=== PATIENT | female | born 1960 | race Hispanic/Latino ===

== ENCOUNTER → 2017-06-03 | Outpatient (CLI) | payer OTHER, MEDICARE ==
[~2017-06-03] MED LIST: ALBU90AE IH; ASPI-1197 PO; BACL10TA PO; CANA1TAB PO; DOCU100T9 PO; FLUO-126 PO; HYDR-4060 PO; INSLAN SQ; INSU100V SQ; INSU200I SQ; LISI-613 PO; MAGN250T2 PO; METOPROLOL PO; NAPR-1023 PO; OXYB10TA PO; PANT40TA25 PO; PREG200C PO; ROSU20TA38 PO; SYMB8060 IH
== END | disposition home or self-care (01) ==
LOC: OIH 12:59
PROVIDERS: ATTEND Family Medicine
DX: J18.0 Bronchopneumonia, unspecified organism (principal)
CPT/HCPCS: 71020

== ENCOUNTER → 2017-08-16 | Outpatient (CLI) | payer OTHER, MEDICARE | END | disposition home or self-care (01) | LOC: OIH 16:48 | PROVIDERS: ATTEND Family Medicine | DX: R07.81 Pleurodynia (principal); E11.9 Type 2 diabetes mellitus without complications | CPT/HCPCS: 71100 ==

== ENCOUNTER → 2017-09-05 | Outpatient (CLI) | payer OTHER, MEDICARE ==
[~2017-09-05] MED LIST changes: +REGADENOSON 0.4 MG/5 ML PF SYG IVP SCH
== END ==
LOC: RAH 08:44
PROVIDERS: ATTEND Family Medicine
DX: Z01.818 Encounter for other preprocedural examination (principal); R94.31 Abnormal electrocardiogram [ECG] [EKG]; E11.9 Type 2 diabetes mellitus without complications
CPT/HCPCS: 78452; 93017; 96374; A9500 ×2; J2785

== ENCOUNTER 2017-10-25 07:44 | Day surgery (SDC) | payer OTHER, MEDICARE ==
[2017-10-21 14:00] VITALS: BP 144/61
[2017-10-21 14:07] LABS: BASOPHILS % (AUTO) 0.6 % (0.0-5.0); EOSINOPHILS % (AUTO) 0.7 % (0.0-8.0); HEMATOCRIT 40.3 % (36-48); LYMPHOCYTES % (AUTO) 19.4 % (21.0-51.0); MEAN CORPUSCULAR HEMOGLOBIN 30.9 pg (27.0-33.0); MEAN CORPUSCULAR HGB CONC 34.2 g/dL (32.0-36.0); MEAN CORPUSCULAR VOLUME 90.4 fL (79-99); MONOCYTES % (AUTO) 5.9 % (3.0-13.0); NEUTROPHILS % (AUTO) 73.4 % (40.0-77.0); NUCLEATED RED BLOOD CELLS 0.1 % (0.0-0.19); PLATELET COUNT (AUTO) 250 K/uL (130-400); RED BLOOD CELL COUNT(AUTO) 4.46 MIL/uL (4.00-5.50); RED CELL DISTRIBUTION WIDTH 13.3 % (11.0-15.5); WHITE BLOOD COUNT (AUTO) 10.5 K/uL (4.8-10.8)
[2017-10-21 14:09] LABS: APPEARANCE,URINE Clear (CLEAR); BILIRUBIN,URINE Negative (NEGATIVE); COLOR,URINE Yellow (YELLOW); GLUCOSE, URINE (UA) >=1000 mg/dL (NEGATIVE); KETONES,URINE Negative (NEGATIVE); LEUKOCYTE ESTERASE ,URINE Negative (NEGATIVE); NITRATE,URINE Negative (NEGATIVE); OCCULT BLOOD,URINE Negative (NEGATIVE); PH,URINE 5.5 (5.0-8.0); PROTEIN,URINE Negative (NEGATIVE)
[2017-10-21 14:17] LABS: CREATININE 0.7 mg/dL (0.5-1.5); POTASSIUM 4.1 mmol/L (3.5-5.1)
[2017-10-21 14:22] LABS: INR 0.93 (0.85-1.15); PARTIAL THROMBOPLASTIN TIME 24.2 SEC (26.3-35.5); PROTHROMBIN TIME 9.8 SEC (9.6-11.6)
[2017-10-21 14:24] LABS: BACTERIA,URINE Rare /HPF (None Seen); RBC,URINE None Seen /HPF (0-1); WBC,URINE None Seen /HPF (0-1)
[2017-10-25] VITALS (10 sets, daily range): BP systolic 99–121; BP diastolic 47–61
[~2017-10-25] VITALS: Ht 154.9 cm; Wt 119.9 kg
[~2017-10-25 07:44] MED LIST changes: -BACL10TA PO; -CANA1TAB PO; -FLUO-126 PO; -INSU100V SQ; -OXYB10TA PO; -REGADENOSON 0.4 MG/5 ML PF SYG IVP SCH; +ROSU20TA30 PO; -ROSU20TA38 PO; -SYMB8060 IH
[2017-10-25] MEDS ORDERED: SODIUM CHLORIDE 0.9% 1000ML 1,000 ML IV ONE (08:36)
[2017-10-25] MEDS ORDERED: DiphenhydrAMINE HCL 50 MG/ML VIAL ONE (09:43)
[2017-10-25] MEDS ORDERED: DiphenhydrAMINE HCL 50 MG/ML VIAL IV ONE (10:50)
[2017-10-25] MEDS ORDERED: SODIUM BICARB 50MEQ 50ML VIAL ONE (11:21)
[2017-10-25] MEDS ORDERED: LIDOCAINE HCL 2% 20ML ONE (11:22)
[2017-10-25] MEDS ORDERED: NITROGLYCERIN 5 MG/ML 10 ML VIAL IV ONE (11:22)
[2017-10-25] MEDS ORDERED: ISOVUE-370 50ML VIAL IV ONE (11:22)
[2017-10-25] MEDS ORDERED: IOPAMIDOL-370 100 ML VIAL IV ONE (11:22)
[2017-10-25] MEDS ORDERED: HEPARIN SODIUM 1000UNIT/ML 10ML VIAL ONE (11:22)
[2017-10-25] MEDS ORDERED: MIDAZOLAM HCL 1 MG/ML 2ML VIAL ONE (12:00)
[2017-10-25] MEDS ORDERED: MEPERIDINE-PF 25 MG/ML SYG ONE (12:00)
[2017-10-25] MEDS ORDERED: SODIUM CHLORIDE 0.9% 1000ML 1,000 ML IV SCH (12:27)
[2017-10-25] MEDS ORDERED: ACETAMINOPHEN-CODEINE 300/30MG TAB PO PRN (12:30)
[2017-10-25] MEDS ORDERED: DEXTROSE 50%-WATER 50 ML DISP.SYRIN IV PRN (12:30)
[2017-10-25] MEDS ORDERED: GLUCAGON 1MG KIT 1 MG ML IM PRN (12:30)
[2017-10-25] MEDS ORDERED: INSULIN HUMULIN R 100 UNIT/ML 3ML SQ SCH (16:30)
== END 2017-10-25 17:08 | disposition home or self-care (01) ==
LOC: DAH 07:44
PROVIDERS: ATTEND Internal Medicine Cardiovascular Disease
DX: I25.119 Atherosclerotic heart disease of native coronary artery with unspecified angina pectoris (principal); I10 Essential (primary) hypertension; E78.5 Hyperlipidemia, unspecified; F17.200 Nicotine dependence, unspecified, uncomplicated; Z79.4 Long term (current) use of insulin; Z79.84 Long term (current) use of oral hypoglycemic drugs; Z79.899 Other long term (current) drug therapy; E11.51 Type 2 diabetes mellitus with diabetic peripheral angiopathy without gangrene; E66.9 Obesity, unspecified; G47.33 Obstructive sleep apnea (adult) (pediatric); M54.16 Radiculopathy, lumbar region; Z98.51 Tubal ligation status; I99.8 Other disorder of circulatory system; I26.99 Other pulmonary embolism without acute cor pulmonale; Z98.890 Other specified postprocedural states; Z82.49 Family history of ischemic heart disease and other diseases of the circulatory system
CPT/HCPCS: 36415; 71045; 80048; 81001; 82948 ×2; 85025; 85610; 85730; 93005; 93458; 99152 ×2; 99153; A4606; C1760; C1894; J1200; J1644; J2175; J2250; J3490 ×3; J7030; Q9967 ×2; 99156; 99157

== ENCOUNTER → 2017-11-07 | Outpatient (CLI) | payer OTHER, MEDICARE | END | disposition home or self-care (01) | LOC: SHCH 15:05 | PROVIDERS: ATTEND Internal Medicine Cardiovascular Disease | DX: I73.9 Peripheral vascular disease, unspecified (principal) | CPT/HCPCS: 93925 ==

== ENCOUNTER → 2017-11-21 | Outpatient (CLI) | payer OTHER, MEDICARE ==
[~2017-11-21] MED LIST changes: +IOPAMIDOL-370 75 ML VIAL IV ONE; +ISOVUE-370 50ML VIAL IV ONE
== END | disposition home or self-care (01) ==
LOC: RAH 07:42
PROVIDERS: ATTEND Internal Medicine Cardiovascular Disease
DX: I70.0 Atherosclerosis of aorta (principal); I73.9 Peripheral vascular disease, unspecified
CPT/HCPCS: 75635; Q9967 ×2

== ENCOUNTER 2018-01-03 05:59 | Day surgery (SDC) | payer OTHER, MEDICARE ==
[2017-12-30 10:44] LABS: APPEARANCE,URINE Clear (CLEAR); BILIRUBIN,URINE Negative (NEGATIVE); COLOR,URINE Yellow (YELLOW); GLUCOSE, URINE (UA) Negative (NEGATIVE); KETONES,URINE Negative (NEGATIVE); LEUKOCYTE ESTERASE ,URINE Negative (NEGATIVE); NITRATE,URINE Negative (NEGATIVE); OCCULT BLOOD,URINE Negative (NEGATIVE); PROTEIN,URINE Negative (NEGATIVE); UROBILINOGEN,URINE 0.2 mg/dL (0.2-1.0)
[2017-12-30 10:59] LABS: BASOPHILS % (AUTO) 1.2 % (0.0-5.0); EOSINOPHILS % (AUTO) 0.7 % (0.0-8.0); HEMATOCRIT 42.4 % (36-48); LYMPHOCYTES % (AUTO) 22.3 % (21.0-51.0); MEAN CORPUSCULAR HEMOGLOBIN 30.7 pg (27.0-33.0); MEAN CORPUSCULAR HGB CONC 33.3 g/dL (32.0-36.0); MEAN CORPUSCULAR VOLUME 92.2 fL (79-99); MONOCYTES % (AUTO) 6.6 % (3.0-13.0); NEUTROPHILS % (AUTO) 69.2 % (40.0-77.0); PLATELET COUNT (AUTO) 248 K/uL (130-400); RED CELL DISTRIBUTION WIDTH 14.2 % (11.0-15.5); WHITE BLOOD COUNT (AUTO) 9.1 K/uL (4.8-10.8)
[2017-12-30 11:07] VITALS: BP 134/65
[2017-12-30 11:09] LABS: CREATININE 0.6 mg/dL (0.5-1.5); POTASSIUM 3.8 mmol/L (3.5-5.1)
[2017-12-30 11:13] LABS: INR 0.94 (0.85-1.15); PARTIAL THROMBOPLASTIN TIME 24.9 SEC (26.3-35.5); PROTHROMBIN TIME 9.9 SEC (9.6-11.6)
[~2018-01-03] VITALS: Ht 157.5 cm; Wt 118.8 kg
[2018-01-03] VITALS (12 sets, daily range): BP systolic 83–132; BP diastolic 42–62
[~2018-01-03 05:59] MED LIST changes: +AMOX500T2 PO; +BUDE10.2 IH; -DOCU100T9 PO; +HYDR-3830 PO; -HYDR-4060 PO; -IOPAMIDOL-370 75 ML VIAL IV ONE; -ISOVUE-370 50ML VIAL IV ONE; +LEG CRAMPS PO; +LORA10TA7 PO; +METO-391 PO; -METOPROLOL PO; -PREG200C PO; +TYL3 PO
[2018-01-03] MEDS ORDERED: SODIUM CHLORIDE 0.9% 1000ML 1,000 ML IV SCH ×2 (08:00→10:37)
[2018-01-03] MEDS ORDERED: NITROGLYCERIN 5 MG/ML 10 ML VIAL IV ONE (09:40)
[2018-01-03] MEDS ORDERED: IODIXANOL 320 MG/ML 100 ML VIAL ONE (09:40)
[2018-01-03] MEDS ORDERED: LIDOCAINE HCL-MPF 2% 5ML VIAL ONE (09:40)
[2018-01-03] MEDS ORDERED: HEPARIN SODIUM 1000UNIT/ML 10ML VIAL ONE (09:40)
[2018-01-03] MEDS ORDERED: SODIUM BICARB 50MEQ 50ML VIAL ONE (09:48)
[2018-01-03] MEDS ORDERED: MIDAZOLAM HCL 1 MG/ML 2ML VIAL ONE (10:01)
[2018-01-03] MEDS ORDERED: MEPERIDINE-PF 25 MG/ML SYG ONE (10:01)
[2018-01-03] MEDS ORDERED: DEXTROSE 50%-WATER 50 ML DISP.SYRIN IV PRN (10:45)
[2018-01-03] MEDS ORDERED: GLUCAGON 1MG KIT 1 MG ML IM PRN (10:45)
[2018-01-03] MEDS ORDERED: INSULIN HUMULIN R 100 UNIT/ML 3ML SQ SCH (11:30)
[2018-01-03] MEDS ORDERED: ACETAMINOPHEN-CODEINE 300/30MG TAB ONE (11:32)
== END 2018-01-03 19:18 | disposition home or self-care (01) ==
LOC: DAH 05:59
PROVIDERS: ATTEND Internal Medicine Cardiovascular Disease
DX: I70.0 Atherosclerosis of aorta (principal); G47.33 Obstructive sleep apnea (adult) (pediatric); Z79.899 Other long term (current) drug therapy; Z79.4 Long term (current) use of insulin; Z79.84 Long term (current) use of oral hypoglycemic drugs; I10 Essential (primary) hypertension; E78.5 Hyperlipidemia, unspecified; M54.16 Radiculopathy, lumbar region; Z98.890 Other specified postprocedural states; Z98.51 Tubal ligation status; Z82.49 Family history of ischemic heart disease and other diseases of the circulatory system; E11.51 Type 2 diabetes mellitus with diabetic peripheral angiopathy without gangrene; I70.213 Atherosclerosis of native arteries of extremities with intermittent claudication, bilateral legs; I21.3 ST elevation (STEMI) myocardial infarction of unspecified site
CPT/HCPCS: 36200; 36415; 37236; 71045; 75625; 80048; 81003; 82948 ×3; 85025; 85347; 85610; 85730; 93005; A4606; C1725; C1760; C1769 ×2; C1876; C1894 ×2; J1644; J2175; J2250; J3490 ×3; J7030; Q9967; 99156; 99157

== ENCOUNTER 2018-02-22 15:07 | Inpatient (IN) | payer OTHER, MEDICARE ==
[~2018-02-22] VITALS: Ht 160 cm; Wt 123.6 kg
[~2018-02-22 15:07] MED LIST changes: -MAGN250T2 PO
[2018-02-22 15:22] LABS: BASOPHILS % (AUTO) 0.9 % (0.0-5.0); EOSINOPHILS % (AUTO) 0.9 % (0.0-8.0); HEMATOCRIT 45.1 % (36-48); LYMPHOCYTES % (AUTO) 25.4 % (21.0-51.0); MEAN CORPUSCULAR HEMOGLOBIN 30.9 pg (27.0-33.0); MEAN CORPUSCULAR VOLUME 90.7 fL (79-99); MONOCYTES % (AUTO) 5.9 % (3.0-13.0); NEUTROPHILS % (AUTO) 66.9 % (40.0-77.0); PLATELET COUNT (AUTO) 242 K/uL (130-400); RED BLOOD CELL COUNT(AUTO) 4.97 MIL/uL (4.00-5.50); RED CELL DISTRIBUTION WIDTH 13.8 % (11.0-15.5); WHITE BLOOD COUNT (AUTO) 13.2 K/uL (4.8-10.8)
[2018-02-22] MEDS ORDERED: IOHEXOL 350 MG/ML 100ML INFUS..BTL IV ONE (15:30)
[2018-02-22 16:15] LABS: CREATININE 0.7 mg/dL (0.5-1.5); POTASSIUM 3.9 mmol/L (3.5-5.1)
[2018-02-22 16:19] LABS: BILIRUBIN,TOTAL 0.6 mg/dL (0.2-1.0); TOTAL PROTEIN, SERUM 7.1 g/dL (6.0-8.3)
[2018-02-22 16:42] LABS: APPEARANCE,URINE Clear (CLEAR); BILIRUBIN,URINE Negative (NEGATIVE); COLOR,URINE Yellow (YELLOW); GLUCOSE, URINE (UA) Negative (NEGATIVE); KETONES,URINE Negative (NEGATIVE); LEUKOCYTE ESTERASE ,URINE Negative (NEGATIVE); NITRATE,URINE Negative (NEGATIVE); OCCULT BLOOD,URINE Negative (NEGATIVE); PROTEIN,URINE Negative (NEGATIVE); UROBILINOGEN,URINE 0.2 mg/dL (0.2-1.0)
[2018-02-22] MEDS ORDERED: ACETAMINOPHEN 325 MG TAB ONE (17:08)
[2018-02-22] MEDS ORDERED: LIDOCAINE HCL-MPF 1% 2ML VIAL IJ PRN (18:30)
[2018-02-22] MEDS ORDERED: POTASSIUM CHLORIDE 20 MEQ ERTAB PO PRN (18:30)
[2018-02-22] MEDS ORDERED: DEXTROSE 50%-WATER 50 ML DISP.SYRIN IV PRN (18:30)
[2018-02-22] MEDS ORDERED: POTASSIUM CHLORIDE 20MEQ/100ML 100 ML IV PRN (18:30)
[2018-02-22] MEDS ORDERED: POTASSIUM CHLORIDE 10% ELIXIR 20 MEQ/15 ML UDCUP PO PRN (18:30)
[2018-02-22] MEDS ORDERED: SODIUM CHLORIDE 0.9% 10 ML VIAL IVP PRN (18:30)
[2018-02-22] MEDS ORDERED: GLUCAGON 1MG KIT 1 MG ML IM PRN (18:30)
[2018-02-22] MEDS ORDERED: NITROGLYCERIN 1GM/1 INCH PACKET TD SCH (19:00)
[2018-02-22 21:31] VITALS: BP 137/77
[2018-02-22 22:12] LABS: CREATINE KINASE, TOTAL 30 U/L (21-232); MYOGLOBIN 21 ng/mL (10-92); TROPONIN I < 0.04 ng/mL (0.00-0.06)
[2018-02-22] MEDS: METOPROLOL TARTRATE 50 MG TAB PO SCH (22:15)
[2018-02-22] MEDS: INSULIN R PO SS1 SQ SCH (22:25)
[2018-02-22 23:49] VITALS: BP 115/70
[2018-02-23 03:43] VITALS: BP 107/59
[2018-02-23] MEDS ORDERED: FURO20TA6 PO (03:52)
[2018-02-23 04:31] LABS: CREATINE KINASE, TOTAL 27 U/L (21-232); MYOGLOBIN 21 ng/mL (10-92); TROPONIN I < 0.04 ng/mL (0.00-0.06)
[2018-02-23] MEDS ORDERED: NITROGLYCERIN 1GM/1 INCH PACKET TD SCH ×2 (05:00→09:44)
[2018-02-23] MEDS: INSULIN R PO SS1 SQ SCH ×4 (05:48→21:00)
[2018-02-23 07:00] VITALS: BP_SYST 100; BP_SYST 187; BP_DIAS 58; BP_DIAS 72
[2018-02-23] MEDS ORDERED: ACETAMINOPHEN 325 MG TAB ONE (09:44)
[2018-02-23] MEDS ORDERED: ACETAMINOPHEN 325 MG TAB PO PRN (09:45)
[2018-02-23] MEDS: METOPROLOL TARTRATE 50 MG TAB PO SCH ×2 (09:53→21:12)
[2018-02-23] MEDS: ACETAMINOPHEN 325 MG TAB PO PRN ×2 (09:53→21:18)
[2018-02-23] MEDS ORDERED: REGADENOSON 0.4 MG/5 ML PF SYG IVP SCH (10:30)
[2018-02-23 11:00] VITALS: BP 126/66
[2018-02-23 18:01] VITALS: BP 113/76
[2018-02-23 19:41] VITALS: BP 110/54
[2018-02-24 00:28] VITALS: BP 106/59
[2018-02-24 03:54] VITALS: BP 120/70
[2018-02-24 07:00] VITALS: BP 122/82
[2018-02-24] MEDS: INSULIN R PO SS1 SQ SCH ×2 (07:30→12:03)
[2018-02-24] MEDS ORDERED: IOHEXOL-350 50ML VIAL IV ONE (09:29)
[2018-02-24] MEDS ORDERED: BIVALIRUDIN 250 MG/VIAL IV ONE (09:29)
[2018-02-24] MEDS ORDERED: IOHEXOL 350 MG/ML 100ML INFUS..BTL IV ONE (09:29)
[2018-02-24] MEDS ORDERED: LIDOCAINE HCL-MPF 2% 5ML VIAL ONE (09:29)
[2018-02-24] MEDS ORDERED: NITROGLYCERIN 5 MG/ML 10 ML VIAL IV ONE (09:29)
[2018-02-24] MEDS ORDERED: METOPROLOL TARTRATE 50 MG TAB PO SCH (09:30)
[2018-02-24] MEDS ORDERED: LISINOPRIL 10 MG TABLET PO SCH (09:30)
[2018-02-24] MEDS ORDERED: APIXABAN 5 MG TABLET PO SCH (09:30)
[2018-02-24 11:00] VITALS: BP 127/51
== END 2018-02-24 15:35 | disposition home or self-care (01) | DRG 309 ==
LOC: EDH 15:07 → EDHIP 17:45 → 2BH 20:42
PROVIDERS: ADMIT Family Medicine; ATTEND Family Medicine
PROC: 5A09357 Assistance with Respiratory Ventilation, Less than 24 Consecutive Hours, Continuous Positive Airway Pressure (ICD-10-PCS; principal; 2018-02-24)
DX: I48.0 Paroxysmal atrial fibrillation (principal); Z68.42 Body mass index [BMI] 45.0-49.9, adult; I25.10 Atherosclerotic heart disease of native coronary artery without angina pectoris; E66.01 Morbid (severe) obesity due to excess calories; E78.5 Hyperlipidemia, unspecified; G47.33 Obstructive sleep apnea (adult) (pediatric); E11.9 Type 2 diabetes mellitus without complications; I10 Essential (primary) hypertension; Z86.711 Personal history of pulmonary embolism; Z86.718 Personal history of other venous thrombosis and embolism
CPT/HCPCS: 36415; 71045; 71046; 71275; 78452; 80053; 81003; 82550; 82948; 83874; 83880; 84443; 84484; 85025; 93005; 93017; 93306; 96374; 99291; A9500; J0583; J1644; J1815; J2785; J3490; Q2038; Q9967

== ENCOUNTER 2018-06-11 22:19 | Emergency (ER) | payer OTHER, MEDICARE ==
[~2018-06-11 22:19] MED LIST changes: -AMOX500T2 PO; -BUDE10.2 IH; +FURO20TA6 PO; -INSU200I SQ; -LEG CRAMPS PO; -LORA10TA7 PO; -NAPR-1023 PO; -TYL3 PO
[2018-06-11] MEDS ORDERED: SODIUM CHLORIDE 0.9% 1000ML 1,000 ML IV ONE (23:35)
[2018-06-11 23:50] LABS: CREATININE 0.6 mg/dL (0.5-1.5); POTASSIUM 3.5 mmol/L (3.5-5.1)
[2018-06-12] LABS: EOSINOPHILS % (AUTO) 1.9 % (0.0-8.0); HEMATOCRIT 37.8 % (36-48); LYMPHOCYTES % (AUTO) 20.2 % (21.0-51.0); MEAN CORPUSCULAR HGB CONC 32.9 g/dL (32.0-36.0); MEAN CORPUSCULAR VOLUME 88.1 fL (79-99); MONOCYTES % (AUTO) 7.7 % (3.0-13.0); NEUTROPHILS % (AUTO) 69.2 % (40.0-77.0); NUCLEATED RED BLOOD CELLS 0.1 % (0.0-0.19); PLATELET COUNT (AUTO) 204 K/uL (130-400); RED BLOOD CELL COUNT(AUTO) 4.29 MIL/uL (4.00-5.50); RED CELL DISTRIBUTION WIDTH 14.2 % (11.0-15.5); WHITE BLOOD COUNT (AUTO) 8.5 K/uL (4.8-10.8)
[2018-06-12] MEDS ORDERED: KETOROLAC TROMETHAMINE 30MG/ML ONE (01:03)
[2018-06-12] MEDS ORDERED: CYCLOBENZAPRINE HCL 10 MG TABLET ONE (01:03)
== END 2018-06-12 01:47 | disposition home or self-care (01) ==
LOC: EDH 22:19
DX: M62.831 Muscle spasm of calf (principal); R11.0 Nausea; I10 Essential (primary) hypertension; E11.9 Type 2 diabetes mellitus without complications; Z79.899 Other long term (current) drug therapy; Z98.890 Other specified postprocedural states; Z72.0 Tobacco use
CPT/HCPCS: 36415; 80048; 85025; 93971; 96374; 99284; J1885; J7030

== ENCOUNTER → 2018-07-07 | Outpatient (CLI) | payer OTHER, MEDICARE | END | disposition home or self-care (01) | LOC: OIH 11:21 | PROVIDERS: ATTEND Neuromusculoskeletal Medicine & OMM | DX: M16.0 Bilateral primary osteoarthritis of hip (principal); M47.816 Spondylosis without myelopathy or radiculopathy, lumbar region; M53.3 Sacrococcygeal disorders, not elsewhere classified | CPT/HCPCS: 72100; 73521 ==

== ENCOUNTER → 2018-11-13 | Outpatient (CLI) | payer OTHER, MEDICARE | END | disposition home or self-care (01) | LOC: SHCH 10:00 | PROVIDERS: ATTEND Internal Medicine Cardiovascular Disease | DX: I80.203 Phlebitis and thrombophlebitis of unspecified deep vessels of lower extremities, bilateral (principal) | CPT/HCPCS: 93970 ==

== ENCOUNTER → 2018-12-01 | Outpatient (CLI) | payer OTHER, MEDICARE | END | disposition home or self-care (01) | LOC: OIH 11-30 07:53 | PROVIDERS: ATTEND Neuromusculoskeletal Medicine & OMM | DX: M47.816 Spondylosis without myelopathy or radiculopathy, lumbar region (principal); M47.812 Spondylosis without myelopathy or radiculopathy, cervical region; M41.86 Other forms of scoliosis, lumbar region; M85.88 Other specified disorders of bone density and structure, other site; M43.27 Fusion of spine, lumbosacral region; M48.02 Spinal stenosis, cervical region; M25.78 Osteophyte, vertebrae; Z95.818 Presence of other cardiac implants and grafts | CPT/HCPCS: 72040; 72100 ==

== ENCOUNTER → 2019-06-28 | Outpatient (CLI) | payer MEDICARE ==
[~2019-06-28] MED LIST changes: -ROSU20TA30 PO; +ROSU20TA31 PO
== END | disposition home or self-care (01) ==
LOC: SHCH 10:35
PROVIDERS: ATTEND Internal Medicine Cardiovascular Disease
DX: I73.9 Peripheral vascular disease, unspecified (principal); I26.99 Other pulmonary embolism without acute cor pulmonale
CPT/HCPCS: 93970

== ENCOUNTER → 2019-07-24 | Outpatient (CLI) | payer MEDICARE ==
[~2019-07-24] MED LIST changes: +IOHEXOL 350 MG/ML 100ML INFUS..BTL IV ONE; +IOHEXOL-350 50ML VIAL IV ONE
== END | disposition home or self-care (01) ==
LOC: RAH 07:37
PROVIDERS: ATTEND Internal Medicine Cardiovascular Disease
DX: M17.0 Bilateral primary osteoarthritis of knee (principal); I70.0 Atherosclerosis of aorta; I51.7 Cardiomegaly; J98.11 Atelectasis; M47.816 Spondylosis without myelopathy or radiculopathy, lumbar region; Z90.49 Acquired absence of other specified parts of digestive tract; Z98.890 Other specified postprocedural states
CPT/HCPCS: 73560; 75635; Q9967 ×2

== ENCOUNTER 2019-08-14 17:59 | Inpatient (IN) | payer MEDICARE ==
[~2019-08-14] VITALS: Ht 154.9 cm; Wt 113.4 kg
[~2019-08-14 17:59] MED LIST changes: -IOHEXOL 350 MG/ML 100ML INFUS..BTL IV ONE; -IOHEXOL-350 50ML VIAL IV ONE
[2019-08-14 18:35] LABS: BASOPHILS % (AUTO) 0.4 % (0.0-5.0); EOSINOPHILS % (AUTO) 0.3 % (0.0-8.0); HEMATOCRIT 42.6 % (36-48); LYMPHOCYTES % (AUTO) 9.4 % (21.0-51.0); MEAN CORPUSCULAR HEMOGLOBIN 29.7 pg (27.0-33.0); MEAN CORPUSCULAR HGB CONC 32.9 g/dL (32.0-36.0); MEAN CORPUSCULAR VOLUME 90.3 fL (79-99); MONOCYTES % (AUTO) 7.5 % (3.0-13.0); NEUTROPHILS % (AUTO) 81.8 % (40.0-77.0); PLATELET COUNT (AUTO) 172 K/uL (130-400); RED BLOOD CELL COUNT(AUTO) 4.72 MIL/uL (4.00-5.50); RED CELL DISTRIBUTION WIDTH 13.1 % (11.0-15.5); WHITE BLOOD COUNT (AUTO) 7.2 K/uL (4.8-10.8)
[2019-08-14] MEDS ORDERED: SODIUM CHLORIDE 0.9% 1000ML 1,000 ML IV ONE (18:46)
[2019-08-14] MEDS ORDERED: ONDANSETRON HCL 4 MG/2 ML VIAL ONE (18:46)
[2019-08-14] MEDS ORDERED: ACETAMINOPHEN EXTRA STRENGTH 500 MG TABLET ONE (18:46)
[2019-08-14 18:57] LABS: INR 0.93 (0.85-1.15); PARTIAL THROMBOPLASTIN TIME 25.2 SEC (26.3-35.5); PROTHROMBIN TIME 10.1 SEC (9.6-11.6)
[2019-08-14 19:10] LABS: CARBON DIOXIDE 28 mmol/L (21-32); CHLORIDE 103 mmol/L (101-111); CREATININE 0.7 mg/dL (0.5-1.5); GLOMERULAR FILTR. RATE CALC 91 mL/min (>60); GLUCOSE,RANDOM 87 mg/dL (70-105); POTASSIUM 3.4 mmol/L (3.5-5.1); SODIUM SERUM 139 mmol/L (136-145); UREA NITROGEN, BLOOD 15 mg/dL (7-18)
[2019-08-14] MEDS ORDERED: IPRATROPIUM/ALBUTEROL SULFATE 3 ML SOLUTION IH ONE ×2 (19:10→22:17)
[2019-08-14 19:28] LABS: ALANINE AMINOTRANSFERASE 24 U/L (12-78); ASPARTATE AMINOTRANSFERASE 18 U/L (10-37); BILIRUBIN,TOTAL 0.5 mg/dL (0.2-1.0); CREATINE KINASE, TOTAL 26 U/L (21-232); MYOGLOBIN 36 ng/mL (10-92); TOTAL PROTEIN, SERUM 6.9 g/dL (6.0-8.3); TROPONIN I < 0.04 ng/mL (0.00-0.06)
[2019-08-14 20:01] LABS: APPEARANCE,URINE Cloudy (CLEAR); BILIRUBIN,URINE Negative (NEGATIVE); COLOR,URINE Yellow (YELLOW); GLUCOSE, URINE (UA) Negative (NEGATIVE); KETONES,URINE Negative (NEGATIVE); LEUKOCYTE ESTERASE ,URINE Negative (NEGATIVE); NITRATE,URINE Negative (NEGATIVE); OCCULT BLOOD,URINE Negative (NEGATIVE); PROTEIN,URINE Trace mg/dL (NEGATIVE)
[2019-08-14] MEDS ORDERED: METHYLPREDNISOLONE SOD SUCC 125MG/2ML VIAL ONE (20:07)
[2019-08-14] MEDS ORDERED: POTASSIUM BICARB/CIT AC 25 MEQ TABLET.EFF ONE (20:07)
[2019-08-14] MEDS ORDERED: IBUPROFEN 200 MG TAB ONE (20:16)
[2019-08-14] MEDS ORDERED: IBUPROFEN 400 MG TABLET ONE (20:16)
[2019-08-14 20:26] LABS: BACTERIA,URINE Moderate /HPF (None Seen); MUCUS,URINE Few LPF (None Seen); SQUAMOUS EPITHELIAL CELL,UR Many /HPF (0-2)
[2019-08-14] MEDS ORDERED: IOHEXOL-350 75 ML VIAL IV ONE (20:59)
[2019-08-14 21:35] LABS: ABG BASE EXCESS -0.1 mmol/L (-2.0-3.0); ABG HCO3 24.6 mmol/L (21.0-28.0); ABG OXYGEN SATURATION 92.2 % (95.0-99.0); ABG PCO2 40 mmHg (32-45)
[2019-08-14] MEDS ORDERED: AZITHROMYCIN 500MG+NS 250ML 250 ML IV ONE (22:09)
[2019-08-14] MEDS ORDERED: CEFTRIAXONE SODIUM 1 GM ONE (22:10)
[2019-08-15 05:08] LABS: BASOPHILS % (AUTO) 0.2 % (0.0-5.0); HEMATOCRIT 40.2 % (36-48); LYMPHOCYTES % (AUTO) 8.7 % (21.0-51.0); MEAN CORPUSCULAR HEMOGLOBIN 29.4 pg (27.0-33.0); MEAN CORPUSCULAR HGB CONC 32.6 g/dL (32.0-36.0); MEAN CORPUSCULAR VOLUME 90.3 fL (79-99); MONOCYTES % (AUTO) 1.7 % (3.0-13.0); PLATELET COUNT (AUTO) 151 K/uL (130-400); RED BLOOD CELL COUNT(AUTO) 4.45 MIL/uL (4.00-5.50); RED CELL DISTRIBUTION WIDTH 13.2 % (11.0-15.5); WHITE BLOOD COUNT (AUTO) 4.6 K/uL (4.8-10.8)
[2019-08-15 05:16] LABS: CREATININE 0.7 mg/dL (0.5-1.5); POTASSIUM 4.1 mmol/L (3.5-5.1)
[2019-08-15 05:27] LABS: ALBUMIN 2.5 g/dL (3.5-5.0); BILIRUBIN,TOTAL 0.3 mg/dL (0.2-1.0); TOTAL PROTEIN, SERUM 6.3 g/dL (6.0-8.3)
[2019-08-15] MEDS: LISINOPRIL 10 MG TABLET PO SCH (09:00)
[2019-08-15] MEDS: PREGABALIN 100 MG CAPSULE PO SCH (09:00)
[2019-08-15] MEDS: METOPROLOL SUCCINATE 50 MG TAB.SR.24H PO SCH ×2 (09:00→21:28)
[2019-08-15] MEDS: BREO ELLIPTA PO SCH (09:00)
[2019-08-15] MEDS: APIXABAN 5 MG TABLET PO SCH ×2 (09:00→21:28)
[2019-08-15] MEDS: DOCUSATE SODIUM 100 MG CAP PO SCH (09:00)
[2019-08-15] MEDS: PANTOPRAZOLE SODIUM 40 MG TABLET.DR PO SCH (09:00)
[2019-08-15] MEDS ORDERED: DOCUSATE SODIUM 100 MG CAP PO ONE (09:51)
[2019-08-15] MEDS ORDERED: PREGABALIN 100 MG CAPSULE ONE (09:52)
[2019-08-15] MEDS ORDERED: PANTOPRAZOLE SODIUM 40 MG TABLET.DR ONE (09:52)
[2019-08-15 11:45] VITALS: BP 143/71
[2019-08-15] MEDS ORDERED: SODIUM CHLORIDE 3% FOR INHALATION 4 ML/AMP VIAL.NEB IH ONE ×3 (12:14→18:30)
[2019-08-15] MEDS ORDERED: MAG HYDROX/AL HYDROX/SIMETH ES 30 ML SUSP UDCUP PO PRN (12:30)
[2019-08-15] MEDS ORDERED: DiphenhydrAMINE HCL 50 MG/ML VIAL IVP PRN (12:30)
[2019-08-15] MEDS ORDERED: NITROGLYCERIN 0.4 MG SL TAB SL PRN (12:30)
[2019-08-15] MEDS ORDERED: LACTULOSE 20 GM/30 ML UDCUP PO PRN (12:30)
[2019-08-15] MEDS ORDERED: DIPHENHYDRAMINE HCL 25 MG CAPSULE PO PRN (12:30)
[2019-08-15] MEDS ORDERED: ACETAMINOPHEN 325 MG TAB PO PRN (12:30)
[2019-08-15] MEDS ORDERED: POTASSIUM CHLORIDE 20MEQ/100ML 100 ML IV PRN (12:30)
[2019-08-15] MEDS ORDERED: ONDANSETRON HCL 4 MG/2 ML VIAL IVP PRN (12:30)
[2019-08-15] MEDS ORDERED: CLONIDINE HCL 0.1 MG TABLET PO PRN (12:30)
[2019-08-15] MEDS ORDERED: DEXTROSE 50%-WATER 50 ML DISP.SYRIN IV PRN (12:30)
[2019-08-15] MEDS ORDERED: POTASSIUM CHLORIDE 10% ELIXIR 20 MEQ/15 ML UDCUP PO PRN (12:30)
[2019-08-15] MEDS ORDERED: POTASSIUM CHLORIDE 20 MEQ ERTAB PO PRN (12:30)
[2019-08-15] MEDS ORDERED: ZOLPIDEM TARTRATE 5 MG TAB PO PRN (12:30)
[2019-08-15] MEDS ORDERED: LIDOCAINE HCL-MPF 1% 2ML VIAL IJ PRN (12:30)
[2019-08-15] MEDS ORDERED: GLUCAGON 1MG KIT 1 MG ML IM PRN (12:30)
[2019-08-15] MEDS: IPRATROPIUM/ALBUTEROL SULFATE 3 ML SOLUTION IH PRN ×2 (13:41→18:35)
[2019-08-15] MEDS: SODIUM CHLORIDE 0.9% 1000ML 1,000 ML IV SCH (15:58)
--- NOTE | 2019-08-15 16:41 | NUR ---
INITIAL SW met with patient and daughter. Patient lives with daughter, Bibi Rangel, [phone]. No home health but does have PHC with [facility] 27 hours a week. DME: cane, standard walker, CPAP, BPM. Patient needs assistance with ADL's and does not drive. Family assists with transportation. PCP is Dr. Xander Kendall. Pharmacy is [facility] located in [place]. DCP is home.
[2019-08-15 17:13] VITALS: BP 93/48
[2019-08-15] MEDS: INSULIN R PO SSI SQ SCH ×2 (17:57→21:37)
[2019-08-15] MEDS: GUAIFENESIN SUGAR-FREE 100 MG/5 ML UDCUP PO PRN (18:01)
[2019-08-15] MEDS: ACETAMINOPHEN 325 MG TAB PO PRN (18:13)
[2019-08-15] MEDS ORDERED: MAGNESIUM 2GM PREMIX 50ML 50 ML IV SCH (20:15)
[2019-08-15 20:23] VITALS: BP 112/60
[2019-08-15] MEDS: ATORVASTATIN CALCIUM 40 MG TABLET PO SCH (21:27)
[2019-08-15] MEDS: INSULIN GLARGINE 100 UNITS/ML 10 ML VIAL SQ SCH (21:38)
[2019-08-15] MEDS: GUAIFENESIN-DM 200/20 MG 10 ML PO PRN (23:37)
[2019-08-16 00:10] VITALS: BP 115/42
[2019-08-16] MEDS: SODIUM CHLORIDE 0.9% 1000ML 1,000 ML IV SCH ×2 (03:44→16:58)
[2019-08-16 04:54] VITALS: BP 98/49
[2019-08-16 05:36] LABS: BASOPHILS % (AUTO) 0.2 % (0.0-5.0); EOSINOPHILS % (AUTO) 0.6 % (0.0-8.0); HEMATOCRIT 41.9 % (36-48); LYMPHOCYTES % (AUTO) 32.7 % (21.0-51.0); MEAN CORPUSCULAR HEMOGLOBIN 29.3 pg (27.0-33.0); MEAN CORPUSCULAR HGB CONC 32.2 g/dL (32.0-36.0); MEAN CORPUSCULAR VOLUME 90.9 fL (79-99); MONOCYTES % (AUTO) 9.8 % (3.0-13.0); NEUTROPHILS % (AUTO) 56.3 % (40.0-77.0); PLATELET COUNT (AUTO) 176 K/uL (130-400); RED BLOOD CELL COUNT(AUTO) 4.61 MIL/uL (4.00-5.50); RED CELL DISTRIBUTION WIDTH 13.3 % (11.0-15.5); WHITE BLOOD COUNT (AUTO) 5.1 K/uL (4.8-10.8)
[2019-08-16 06:02] LABS: ALBUMIN 2.8 g/dL (3.5-5.0); BILIRUBIN,TOTAL 0.2 mg/dL (0.2-1.0); CREATININE 0.9 mg/dL (0.5-1.5); POTASSIUM 3.7 mmol/L (3.5-5.1); TOTAL PROTEIN, SERUM 6.5 g/dL (6.0-8.3)
[2019-08-16] MEDS: INSULIN R PO SSI SQ SCH ×4 (06:34→22:18)
[2019-08-16] MEDS: IPRATROPIUM/ALBUTEROL SULFATE 3 ML SOLUTION IH PRN ×2 (07:09→19:07)
[2019-08-16 07:30] VITALS: BP 104/51
[2019-08-16] MEDS: DOCUSATE SODIUM 100 MG CAP PO SCH (09:00)
[2019-08-16] MEDS: BREO ELLIPTA PO SCH (09:00)
[2019-08-16] MEDS ORDERED: REGADENOSON 0.4 MG/5 ML PF SYG IVP SCH (10:15)
[2019-08-16 12:05] VITALS: BP 132/73
--- NOTE | 2019-08-16 14:38 | NUR ---
1421 patient signed IM Letter, I faxed IM Letter to [phone] and placed in chart under consent tab.
[2019-08-16 16:00] VITALS: BP 127/70
[2019-08-16] MEDS: CEFTRIAXONE SODIUM 1 GM IVP SCH (16:41)
[2019-08-16] MEDS: GUAIFENESIN SUGAR-FREE 100 MG/5 ML UDCUP PO PRN (16:42)
[2019-08-16] MEDS: LISINOPRIL 10 MG TABLET PO SCH (16:43)
[2019-08-16] MEDS: PANTOPRAZOLE SODIUM 40 MG TABLET.DR PO SCH (16:43)
[2019-08-16] MEDS: ACETAMINOPHEN 325 MG TAB PO PRN (16:43)
[2019-08-16] MEDS: PREGABALIN 100 MG CAPSULE PO SCH (16:44)
[2019-08-16] MEDS: APIXABAN 5 MG TABLET PO SCH ×2 (16:44→22:16)
[2019-08-16] MEDS: METOPROLOL SUCCINATE 50 MG TAB.SR.24H PO SCH ×2 (16:45→22:15)
[2019-08-16] MEDS: AZITHROMYCIN 500MG+NS 250ML 250 ML IV SCH (16:47)
[2019-08-16 20:29] VITALS: BP 106/61
[2019-08-16] MEDS: ATORVASTATIN CALCIUM 40 MG TABLET PO SCH (22:15)
[2019-08-16] MEDS: INSULIN GLARGINE 100 UNITS/ML 10 ML VIAL SQ SCH (22:17)
[2019-08-17 00:32] VITALS: BP 128/73
[2019-08-17 04:19] VITALS: BP 105/60
[2019-08-17] MEDS: SODIUM CHLORIDE 0.9% 1000ML 1,000 ML IV SCH ×3 (05:55→23:20)
[2019-08-17] MEDS: ACETAMINOPHEN 325 MG TAB PO PRN (05:59)
[2019-08-17] MEDS: GUAIFENESIN SUGAR-FREE 100 MG/5 ML UDCUP PO PRN (06:03)
[2019-08-17] MEDS: INSULIN R PO SSI SQ SCH ×4 (06:04→21:22)
[2019-08-17] MEDS: IPRATROPIUM/ALBUTEROL SULFATE 3 ML SOLUTION IH PRN ×2 (06:13→19:35)
[2019-08-17 07:30] VITALS: BP 101/58
[2019-08-17] MEDS: CEFTRIAXONE SODIUM 1 GM IVP SCH (08:39)
[2019-08-17] MEDS: AZITHROMYCIN 500MG+NS 250ML 250 ML IV SCH (08:39)
[2019-08-17] MEDS: PREGABALIN 100 MG CAPSULE PO SCH (08:40)
[2019-08-17] MEDS: METOPROLOL SUCCINATE 50 MG TAB.SR.24H PO SCH ×2 (08:40→19:58)
[2019-08-17] MEDS: LISINOPRIL 10 MG TABLET PO SCH (08:40)
[2019-08-17] MEDS: APIXABAN 5 MG TABLET PO SCH ×2 (08:40→19:57)
[2019-08-17] MEDS: BREO ELLIPTA PO SCH (08:41)
[2019-08-17] MEDS: PANTOPRAZOLE SODIUM 40 MG TABLET.DR PO SCH (08:41)
[2019-08-17] MEDS: DOCUSATE SODIUM 100 MG CAP PO SCH (08:42)
[2019-08-17 11:00] VITALS: BP 93/43
--- NOTE | 2019-08-17 15:55 | NUR ---
[facility] rounding on pt. Rec'd notice from BELEN Lawler, that pt needs to be screened for Covid19 per CDC guidelines, due to fever, groundglass opacities on CT, and lymphopenia. Spoke with Dr. Kendall via telephone and rec'd order. Infection Welder [employer] Tungsten Arc Ernestina Cook RN and Honing Machine Try Out Setter Nabila Ring RN made aware. Pt placed on airborne isolation and moved to room 317 (negative pressure room) after explanation of plan of care to pt by Dwight Cook RN.
[2019-08-17 16:00] VITALS: BP 111/58
[2019-08-17] MEDS: ATORVASTATIN CALCIUM 40 MG TABLET PO SCH (19:58)
[2019-08-17] MEDS: INSULIN GLARGINE 100 UNITS/ML 10 ML VIAL SQ SCH (20:00)
[2019-08-17 20:30] VITALS: BP 167/74
[2019-08-17] MEDS: OSELTAMIVIR PHOSPHATE 75 MG CAP PO SCH (22:35)
[2019-08-17] MEDS ORDERED: OSELTAMIVIR PHOSPHATE 75 MG CAP ONE (22:41)
[2019-08-18] VITALS (7 sets, daily range): BP systolic 111–141; BP diastolic 60–72
[2019-08-18] MEDS: ACETAMINOPHEN 325 MG TAB PO PRN ×2 (03:27→12:54)
--- NOTE | 2019-08-18 05:53 | NUR ---
PATIENT UPDATE Pt slept fairly overnight, no complaints of chest pain, no shortness of breath. Uses the O2 per nasal cannula on and off, refused the cpap last night. Hasn't really keeping the cpap mask on overnight, the most is 2 hrs. Resp PCR result showing pt positive for Influenza A. Dr. Kendall called last night at 2230 and was made aware of the result and received orders to start pt on tamiflu which was started last night and to consult Infectious disease doctor Dr. Nair for this am.Had been running low grade fevers from 99.4 to 99.5. Medicated once for back discomfort with tylenol gr x. Continues to be airborne isolation r/o carona virus infection. Running normal sinus in the 80's , normotensive. Not in any form of discomfort.
[2019-08-18] MEDS: INSULIN R PO SSI SQ SCH ×4 (06:14→21:26)
[2019-08-18] MEDS: IPRATROPIUM/ALBUTEROL SULFATE 3 ML SOLUTION IH PRN (06:38)
[2019-08-18] MEDS: BREO ELLIPTA PO SCH (09:00)
[2019-08-18] MEDS: DOCUSATE SODIUM 100 MG CAP PO SCH (09:00)
[2019-08-18] MEDS: CEFTRIAXONE SODIUM 1 GM IVP SCH (09:47)
[2019-08-18] MEDS: PREGABALIN 100 MG CAPSULE PO SCH (09:48)
[2019-08-18] MEDS: METOPROLOL SUCCINATE 50 MG TAB.SR.24H PO SCH ×2 (09:48→21:23)
[2019-08-18] MEDS: OSELTAMIVIR PHOSPHATE 75 MG CAP PO SCH ×2 (09:48→21:23)
[2019-08-18] MEDS: APIXABAN 5 MG TABLET PO SCH ×2 (09:48→21:24)
[2019-08-18] MEDS: PANTOPRAZOLE SODIUM 40 MG TABLET.DR PO SCH (09:48)
[2019-08-18] MEDS: LISINOPRIL 10 MG TABLET PO SCH (09:48)
[2019-08-18] MEDS: AZITHROMYCIN 500MG+NS 250ML 250 ML IV SCH (09:49)
[2019-08-18] MEDS: SODIUM CHLORIDE 0.9% 1000ML 1,000 ML IV SCH (11:07)
[2019-08-18] MEDS: HYDROCODONE/ACETAMINOPHEN 5/325 MG TAB PO PRN (21:24)
[2019-08-18] MEDS: ATORVASTATIN CALCIUM 40 MG TABLET PO SCH (21:24)
[2019-08-18] MEDS: INSULIN GLARGINE 100 UNITS/ML 10 ML VIAL SQ SCH (21:27)
[2019-08-19] MEDS: SODIUM CHLORIDE 0.9% 1000ML 1,000 ML IV SCH ×2 (03:10→21:33)
[2019-08-19 03:41] VITALS: BP 110/57
[2019-08-19] MEDS: INSULIN R PO SSI SQ SCH ×4 (06:02→21:20)
[2019-08-19] MEDS: IPRATROPIUM/ALBUTEROL SULFATE 3 ML SOLUTION IH PRN ×2 (06:26→18:30)
--- NOTE | 2019-08-19 06:42 | NUR ---
PATIENT UPDATE Downgraded to a droplet isolation for the H1N1 infection,on Tamiflu. No low grade fevers, medicated once for pain with [place] which afforded relief. Continues with the same treatment regimen.
[2019-08-19 07:35] VITALS: BP 112/62
[2019-08-19] MEDS: DOCUSATE SODIUM 100 MG CAP PO SCH (09:00)
[2019-08-19] MEDS: BREO ELLIPTA PO SCH (09:00)
[2019-08-19] MEDS: APIXABAN 5 MG TABLET PO SCH ×2 (10:01→21:26)
[2019-08-19] MEDS: PREGABALIN 100 MG CAPSULE PO SCH (10:01)
[2019-08-19] MEDS: LISINOPRIL 10 MG TABLET PO SCH (10:01)
[2019-08-19] MEDS: OSELTAMIVIR PHOSPHATE 75 MG CAP PO SCH ×2 (10:01→21:26)
[2019-08-19] MEDS: METOPROLOL SUCCINATE 50 MG TAB.SR.24H PO SCH ×2 (10:01→21:26)
[2019-08-19] MEDS: PANTOPRAZOLE SODIUM 40 MG TABLET.DR PO SCH (10:02)
[2019-08-19] MEDS: METHYLPREDNISOLONE SOD SUCC 40MG/ML 1ML IVP SCH (10:27)
[2019-08-19] MEDS: CEFTRIAXONE SODIUM 1 GM IVP SCH (10:27)
[2019-08-19] MEDS: AZITHROMYCIN 500MG+NS 250ML 250 ML IV SCH (10:27)
[2019-08-19 11:03] VITALS: BP 132/66
[2019-08-19 16:00] VITALS: BP 129/73
[2019-08-19 19:00] VITALS: BP 163/79
[2019-08-19] MEDS ORDERED: INSULIN GLARGINE 100 UNITS/ML 10 ML VIAL SQ SCH (21:00)
[2019-08-19] MEDS: GUAIFENESIN SUGAR-FREE 100 MG/5 ML UDCUP PO PRN (21:26)
[2019-08-19] MEDS: HYDROCODONE/ACETAMINOPHEN 5/325 MG TAB PO PRN (21:26)
[2019-08-19] MEDS: ATORVASTATIN CALCIUM 40 MG TABLET PO SCH (21:26)
[2019-08-19 23:00] VITALS: BP 134/64
[2019-08-20 03:00] VITALS: BP 122/61
[2019-08-20] MEDS: ACETAMINOPHEN 325 MG TAB PO PRN (04:25)
[2019-08-20] MEDS: GUAIFENESIN-DM 200/20 MG 10 ML PO PRN (04:30)
[2019-08-20] MEDS: IPRATROPIUM/ALBUTEROL SULFATE 3 ML SOLUTION IH PRN (05:33)
[2019-08-20] MEDS: INSULIN R PO SSI SQ SCH ×2 (06:59→11:26)
[2019-08-20 07:30] VITALS: BP 112/64
[2019-08-20] MEDS: AZITHROMYCIN 500MG+NS 250ML 250 ML IV SCH (08:18)
[2019-08-20] MEDS: CEFTRIAXONE SODIUM 1 GM IVP SCH (08:18)
[2019-08-20] MEDS: METHYLPREDNISOLONE SOD SUCC 40MG/ML 1ML IVP SCH (08:18)
[2019-08-20] MEDS: METOPROLOL SUCCINATE 50 MG TAB.SR.24H PO SCH (08:18)
[2019-08-20] MEDS: LISINOPRIL 10 MG TABLET PO SCH (08:19)
[2019-08-20] MEDS: OSELTAMIVIR PHOSPHATE 75 MG CAP PO SCH (08:19)
[2019-08-20] MEDS: APIXABAN 5 MG TABLET PO SCH (08:19)
[2019-08-20] MEDS: PREGABALIN 100 MG CAPSULE PO SCH (08:19)
[2019-08-20] MEDS: PANTOPRAZOLE SODIUM 40 MG TABLET.DR PO SCH (08:19)
[2019-08-20] MEDS: SODIUM CHLORIDE 0.9% 1000ML 1,000 ML IV SCH (08:20)
[2019-08-20] MEDS: BREO ELLIPTA PO SCH (08:27)
[2019-08-20] MEDS: DOCUSATE SODIUM 100 MG CAP PO SCH (08:27)
[2019-08-20] MEDS: HYDROCODONE/ACETAMINOPHEN 5/325 MG TAB PO PRN (09:10)
[2019-08-20 11:16] VITALS: BP 122/60
== END 2019-08-20 14:15 | disposition home or self-care (01) | DRG 871 ==
LOC: EDH 17:59 → EDHIP 22:00 → OBSVTOIN 22:00 → 3CH 08-15 11:32
PROVIDERS: ADMIT Family Medicine; ATTEND Family Medicine
DX: A41.9 Sepsis, unspecified organism (principal); J96.91 Respiratory failure, unspecified with hypoxia; J10.00 Influenza due to other identified influenza virus with unspecified type of pneumonia; Z68.42 Body mass index [BMI] 45.0-49.9, adult; I10 Essential (primary) hypertension; E78.5 Hyperlipidemia, unspecified; E11.9 Type 2 diabetes mellitus without complications; E66.01 Morbid (severe) obesity due to excess calories; I25.10 Atherosclerotic heart disease of native coronary artery without angina pectoris; Z83.3 Family history of diabetes mellitus; Z79.899 Other long term (current) drug therapy
CPT/HCPCS: 36415; 36600; 71045; 71275; 78452; 80053; 81001; 82550; 82803; 82948; 83605; 83735; 83874; 83880; 84145; 84484; 85025; 85378; 85610; 85730; 87040; 87071; 87088; 87205; 87486; 87581; 87633; 87798; 87804; 93005; 93017; 94640; 94660; 94664; 96374; 99291; A9500; G0378; J0456; J0696; J1815; J2405; J2785; J2920; J2930; J3475; J7030; Q9967

== ENCOUNTER → 2019-08-27 | Outpatient (CLI) | payer MEDICARE ==
--- NOTE | 2019-08-15 14:52 | NUR ---
INITIAL SW met with patient and daughter. Patient lives with daughter, Shannan Rangel, [phone]. No home health but does have PHC with [facility] hours. DME: cane, standard walker, CPAP, BPM. Patient needs help with ADL's and does not drive. Daughter helps provide transportation. PCP is Dr. Xander Kendall. Pharmacy is [facility] located in [place]. DCP is home. Addendum: 08/15/19 at 1455 by VIKRAM SUTTON SS Amended: Links added.
== END | disposition home or self-care (01) ==
LOC: SHCH 10:50
PROVIDERS: ATTEND Internal Medicine Cardiovascular Disease
DX: I10 Essential (primary) hypertension (principal)
CPT/HCPCS: 93925

== ENCOUNTER → 2019-09-26 | Outpatient (CLI) | payer MEDICARE ==
[2019-09-26 11:56] LABS: CREATININE 0.7 mg/dL (0.5-1.5)
== END | disposition home or self-care (01) ==
LOC: LAB 11:06
PROVIDERS: ATTEND Neuromusculoskeletal Medicine & OMM
DX: M48.062 Spinal stenosis, lumbar region with neurogenic claudication (principal)
CPT/HCPCS: 36415; 82565; 84520

== ENCOUNTER → 2019-10-03 | Outpatient (CLI) | payer MEDICARE ==
[~2019-10-03] MED LIST changes: +APIX5TAB PO; +ATOR10TA69 PO; +GADODIAMIDE 10 MMOL/20 ML VIAL IV ONE; +HYDR-4068 PO; +INSU100V37 SQ; +LISI10TA7 PO; +LORA10TA7 PO; -PANT40TA25 PO; +PANT40TA54 PO; +TRAM50TA4 PO
== END | disposition home or self-care (01) ==
LOC: RAH 12:52
PROVIDERS: ATTEND Neuromusculoskeletal Medicine & OMM
DX: M48.061 Spinal stenosis, lumbar region without neurogenic claudication (principal); Z98.1 Arthrodesis status
CPT/HCPCS: 72158; A9579

== ENCOUNTER 2019-11-13 05:45 | Day surgery (SDC) | payer MEDICARE ==
--- NOTE | 2019-11-12 13:20 | NUR ---
report called onel matson for dr chen and informed of eliquis received instructions to have pt stop eliquis today and proceed with procedure. will notify pt
[2019-11-13] VITALS (10 sets, daily range): BP systolic 94–119; BP diastolic 41–63; PULSE 61–83; RESP 14–18; TEMP 97.2–97.7
[~2019-11-13] VITALS: Ht 157.5 cm; Wt 112.1 kg
[2019-11-13] MEDS ORDERED: SODIUM CHLORIDE 0.9% 1000ML 1,000 ML IV ONE (05:55)
[2019-11-13] MEDS ORDERED: SODIUM BICARB 50MEQ 50ML VIAL ONE (07:22)
[2019-11-13] MEDS ORDERED: IODIXANOL 320 MG/ML 100 ML VIAL ONE (07:23)
[2019-11-13] MEDS ORDERED: NICARDIPINE HCL 25 MG/10 ML ML IV ONE (07:23)
[2019-11-13] MEDS ORDERED: NITROGLYCERIN 2 MG/VIAL VIAL IV ONE (07:23)
[2019-11-13] MEDS ORDERED: HEPARIN SODIUM 1000UNIT/ML 10ML VIAL ONE (07:23)
[2019-11-13] MEDS ORDERED: MIDAZOLAM HCL 1 MG/ML 2ML VIAL ONE (07:24)
[2019-11-13] MEDS ORDERED: LIDOCAINE HCL 2% 20ML ONE (07:24)
[2019-11-13] MEDS ORDERED: MEPERIDINE-PF 25 MG/ML SYG ONE (07:24)
[2019-11-13] MEDS ORDERED: SODIUM CHLORIDE 0.9% 1000ML 1,000 ML IV SCH (09:01)
[2019-11-13] MEDS ORDERED: DEXTROSE 50%-WATER 50 ML DISP.SYRIN IV PRN (09:15)
[2019-11-13] MEDS ORDERED: GLUCAGON 1MG KIT 1 MG ML IM PRN (09:15)
[2019-11-13] MEDS ORDERED: INSULIN HUMULIN R 100 UNIT/ML 3ML SQ SCH (11:30)
== END 2019-11-13 13:35 | disposition home or self-care (01) ==
LOC: DAH 05:45
PROVIDERS: ATTEND Internal Medicine Cardiovascular Disease
DX: R07.9 Chest pain, unspecified (principal); E11.9 Type 2 diabetes mellitus without complications; G47.33 Obstructive sleep apnea (adult) (pediatric); I48.0 Paroxysmal atrial fibrillation; I25.10 Atherosclerotic heart disease of native coronary artery without angina pectoris; I73.9 Peripheral vascular disease, unspecified; Z86.718 Personal history of other venous thrombosis and embolism; Z86.711 Personal history of pulmonary embolism; Z98.51 Tubal ligation status; E78.5 Hyperlipidemia, unspecified; M54.17 Radiculopathy, lumbosacral region; Z79.01 Long term (current) use of anticoagulants; Z79.4 Long term (current) use of insulin; Z79.899 Other long term (current) drug therapy; Z95.5 Presence of coronary angioplasty implant and graft; Z99.89 Dependence on other enabling machines and devices
CPT/HCPCS: 36415; 71045; 75630; 80048; 81003; 82948 ×2; 85025; 85610; 85730; 93005; 93458; A4215; A4216; A4221; A4222; A4223 ×3; A4606; A4663; C1769; C1894; J1644 ×2; J2175; J2250; J3490 ×4; J7030; Q9967

== ENCOUNTER → 2019-12-17 | Outpatient (CLI) | payer MEDICARE | END | disposition home or self-care (01) | LOC: OIH 08:53 | PROVIDERS: ATTEND Physical Medicine & Rehabilitation | DX: M16.12 Unilateral primary osteoarthritis, left hip (principal); M54.5 Low back pain; M25.552 Pain in left hip; M47.816 Spondylosis without myelopathy or radiculopathy, lumbar region ==

== ENCOUNTER → 2021-08-04 | Outpatient (CLI) | payer OTHER, MEDICARE ==
[~2021-08-04] MED LIST changes: -ASPI-1197 PO; -FURO20TA6 PO; -GADODIAMIDE 10 MMOL/20 ML VIAL IV ONE; -HYDR-3830 PO; -INSLAN SQ; -LISI-613 PO; +LISI10TA24 PO; -LISI10TA7 PO; -ROSU20TA31 PO
== END | disposition home or self-care (01) ==
LOC: SHCH 10:45
PROVIDERS: ATTEND Internal Medicine Cardiovascular Disease
DX: I35.8 Other nonrheumatic aortic valve disorders (principal); I11.9 Hypertensive heart disease without heart failure; I48.0 Paroxysmal atrial fibrillation; E11.9 Type 2 diabetes mellitus without complications; E78.5 Hyperlipidemia, unspecified; E66.9 Obesity, unspecified
CPT/HCPCS: 93306

== ENCOUNTER → 2021-10-02 | Outpatient (CLI) | payer OTHER, MEDICARE | LOC: SHCH 08:25 | PROVIDERS: ATTEND Internal Medicine Cardiovascular Disease | DX: I73.9 Peripheral vascular disease, unspecified (principal) | CPT/HCPCS: 93925 ==

== ENCOUNTER → 2022-02-01 | Outpatient (CLI) | payer OTHER, MEDICARE ==
[2022-02-01 12:59] LABS: ALBUMIN 3.2 g/dL (3.5-5.0); CREATININE 0.7 mg/dL (0.5-1.5); POTASSIUM 4.4 mmol/L (3.5-5.1); TOTAL PROTEIN, SERUM 6.7 g/dL (6.0-8.3)
== END | disposition home or self-care (01) ==
LOC: LAB 09:57
PROVIDERS: ATTEND Internal Medicine Cardiovascular Disease
DX: I10 Essential (primary) hypertension (principal)
CPT/HCPCS: 36415; 80053

== ENCOUNTER → 2022-02-23 | Outpatient (CLI) | payer OTHER, MEDICARE ==
[~2022-02-23] MED LIST changes: +IOHEXOL 350 MG/ML 100ML INFUS..BTL IV ONE
== END | disposition home or self-care (01) ==
LOC: RAH 07:49
PROVIDERS: ATTEND Internal Medicine Cardiovascular Disease
DX: I70.0 Atherosclerosis of aorta (principal); I73.9 Peripheral vascular disease, unspecified; Z95.820 Peripheral vascular angioplasty status with implants and grafts
CPT/HCPCS: 75635; Q9967

== ENCOUNTER → 2022-05-20 | Outpatient (CLI) | payer OTHER, MEDICARE ==
[~2022-05-20] MED LIST changes: +BUPR150T3 PO; +DULO30CA2 PO; +GABA300C PO; -HYDR-4068 PO; -IOHEXOL 350 MG/ML 100ML INFUS..BTL IV ONE; +NICO-704 TD; +OMEP40CA21 PO; -PANT40TA54 PO; +SEMA1PEN3 SQ; -TRAM50TA4 PO; +VITAD50000 PO; +[UNRECOGNIZED DRUG - OTHER] PO
== END | disposition home or self-care (01) ==
LOC: RAH 12:55
PROVIDERS: ATTEND Internal Medicine Cardiovascular Disease
DX: I72.9 Aneurysm of unspecified site (principal); M79.605 Pain in left leg
CPT/HCPCS: 76882

== ENCOUNTER → 2022-08-25 | Outpatient (CLI) | payer OTHER, MEDICARE | END | disposition home or self-care (01) | LOC: RAH 10:51 | PROVIDERS: ATTEND Family Medicine | DX: Z12.31 Encounter for screening mammogram for malignant neoplasm of breast (principal) | CPT/HCPCS: 77067 ==

== ENCOUNTER → 2022-09-09 | Outpatient (CLI) | payer OTHER, MEDICARE | END | disposition home or self-care (01) | LOC: SHCH 07:47 | PROVIDERS: ATTEND Internal Medicine Cardiovascular Disease | DX: I70.0 Atherosclerosis of aorta (principal); I70.8 Atherosclerosis of other arteries; I71.40 Abdominal aortic aneurysm, without rupture, unspecified; Z95.828 Presence of other vascular implants and grafts | CPT/HCPCS: 93978 ==

== ENCOUNTER → 2022-09-27 | Outpatient (CLI) | payer OTHER, MEDICARE | END | disposition home or self-care (01) | LOC: RAH 13:29 | PROVIDERS: ATTEND Internal Medicine Cardiovascular Disease | DX: I87.2 Venous insufficiency (chronic) (peripheral) (principal); I82.412 Acute embolism and thrombosis of left femoral vein; I82.432 Acute embolism and thrombosis of left popliteal vein; M79.604 Pain in right leg; I73.9 Peripheral vascular disease, unspecified | CPT/HCPCS: 93970 ==

== ENCOUNTER → 2022-10-08 | Outpatient (CLI) | payer OTHER, MEDICARE | END | disposition home or self-care (01) | LOC: RAH 10:00 | PROVIDERS: ATTEND Internal Medicine | DX: I26.99 Other pulmonary embolism without acute cor pulmonale (principal) | CPT/HCPCS: 71250 ==

== ENCOUNTER → 2022-12-13 | Outpatient (CLI) | payer OTHER, MEDICARE | END | disposition home or self-care (01) | LOC: SHCH 11:04 | PROVIDERS: ATTEND Internal Medicine Cardiovascular Disease | DX: I11.9 Hypertensive heart disease without heart failure (principal); I34.81 Nonrheumatic mitral (valve) annulus calcification; E78.5 Hyperlipidemia, unspecified; E11.9 Type 2 diabetes mellitus without complications | CPT/HCPCS: 93306 ==

== ENCOUNTER 2023-02-14 15:38 | Observation (INO) | payer OTHER, MEDICARE ==
[~2023-02-14] VITALS: Ht 162.6 cm; Wt 99.8 kg
[2023-02-14] MEDS ORDERED: 0.9%NACL 1000ML 1,000 ML IV ONE (17:00)
[2023-02-14 17:32] LABS: BASOPHILS # (AUTO) 0.02 K/uL (0.00-0.20); BASOPHILS % (AUTO) 0.2 % (0.0-5.0); EOSINOPHILS % (AUTO) 1.1 % (0.0-8.0); HEMATOCRIT 39.8 % (36-48); IMMATURE GRANULOCYTE ABSOLUTE 0.03 K/uL (0-1); LYMPHOCYTES # (AUTO) 2.9 K/uL (1.0-4.8); LYMPHOCYTES % (AUTO) 31.9 % (21.0-51.0); MEAN CORPUSCULAR HEMOGLOBIN 30.2 pg (27.0-33.0); MEAN CORPUSCULAR HGB CONC 32.7 g/dL (32.0-36.0); MEAN CORPUSCULAR VOLUME 92.6 fL (79-99); MONOCYTES # (AUTO) 0.7 K/uL (0.1-1.0); MONOCYTES % (AUTO) 7.1 % (3.0-13.0); NEUTROPHILS # (AUTO) 5.4 K/uL (1.8-7.7); NEUTROPHILS % (AUTO) 59.4 % (40.0-77.0); PLATELET COUNT (AUTO) 210 K/uL (130-400); RED CELL DISTRIBUTION WIDTH 13.2 % (11.0-15.5); WHITE BLOOD COUNT (AUTO) 9.1 K/uL (4.8-10.8)
[2023-02-14 17:37] LABS: CREATININE 0.6 mg/dL (0.5-1.5); POTASSIUM 3.6 mmol/L (3.5-5.1)
[2023-02-14 17:42] LABS: BILIRUBIN,TOTAL 0.4 mg/dL (0.2-1.0); TOTAL PROTEIN, SERUM 6.1 g/dL (6.0-8.3)
[2023-02-14 17:49] LABS: APPEARANCE,URINE CLEAR (CLEAR); BILIRUBIN,URINE NEGATIVE (NEGATIVE); COLOR,URINE LIGHT-YELLOW (YELLOW); GLUCOSE, URINE (UA) 70 mg/dL (NEGATIVE); KETONES,URINE NEGATIVE (NEGATIVE); LEUKOCYTE ESTERASE ,URINE NEGATIVE Leu/uL (NEGATIVE); NITRATE,URINE NEGATIVE (NEGATIVE); OCCULT BLOOD,URINE NEGATIVE (NEGATIVE); PROTEIN,URINE NEGATIVE (NEGATIVE); UROBILINOGEN,URINE 0.2 mg/dL (0.2-1.0)
[2023-02-14 17:50] LABS: ADD UA MICROSCOPIC YES
[2023-02-14 17:51] LABS: MUCUS,URINE RARE LPF (None Seen); RBC,URINE 0-1 /HPF (0-1); SQUAMOUS EPITHELIAL CELL,UR RARE /HPF (0-2); WBC,URINE 0-1 /HPF (0-1)
[2023-02-14 17:56] LABS: AMPHET/METH SCREEN,URINE NEGATIVE (NEGATIVE); BARBITURATE SCREEN, URINE NEGATIVE (NEGATIVE); BENZODIAZEPINES SCREEN,URINE NEGATIVE (NEGATIVE); CANNABINOID SCREEN,URINE NEGATIVE (NEGATIVE); COCAINE SCREEN,URINE NEGATIVE (NEGATIVE); OPIATE SCREEN,URINE NEGATIVE (NEGATIVE); PHENCYCLIDINE SCREEN,URINE NEGATIVE (NEGATIVE)
[2023-02-14 20:48] LABS: RAPID GROUP A STREP negative (NEGATIVE)
[2023-02-14 20:51] LABS: SARS-CoV-2, RNA, NAAT NEGATIVE SARS CoV-2 (NEGATIVE)
[2023-02-14 20:56] LABS: INFLUENZA TYPE A Negative For Type A (NEGATIVE); INFLUENZA TYPE B Negative For Type B (NEGATIVE)
[2023-02-14] MEDS ORDERED: ACETAMINOPHEN 325 MG TAB PO PRN (21:30)
[2023-02-14] MEDS: 0.9%NACL 1000ML 1,000 ML IV SCH (22:14)
[2023-02-15 07:02] LABS: HEMATOCRIT 38.9 % (36-48); MEAN CORPUSCULAR HEMOGLOBIN 30.2 pg (27.0-33.0); MEAN CORPUSCULAR HGB CONC 33.2 g/dL (32.0-36.0); MEAN CORPUSCULAR VOLUME 91.1 fL (79-99); RED BLOOD CELL COUNT(AUTO) 4.27 MIL/uL (4.00-5.50); RED CELL DISTRIBUTION WIDTH 13.3 % (11.0-15.5); WHITE BLOOD COUNT (AUTO) 8.4 K/uL (4.8-10.8)
[2023-02-15 07:29] LABS: CREATININE 0.5 mg/dL (0.5-1.5); MAGNESIUM 1.9 mg/dL (1.80-2.40); PHOSPHORUS 3.3 mg/dL (2.5-4.9); POTASSIUM 3.6 mmol/L (3.5-5.1); THYROID STIMULATING HORMONE 0.99 uIU/mL (0.36-3.74)
[2023-02-15] MEDS: 0.9%NACL 1000ML 1,000 ML IV SCH ×2 (07:37→17:06)
[2023-02-15] MEDS: INSULIN HUMULIN R 100 UNIT/ML 3ML SQ SCH ×3 (08:21→17:06)
[2023-02-15] MEDS ORDERED: FAMOTIDINE 20MG TAB PO SCH (09:00)
[2023-02-15] MEDS: ENOXAPARIN SODIUM 30 MG/0.3 ML SQ SCH ×2 (09:00→09:19)
[2023-02-15] MEDS ORDERED: ASPIRIN 325MG TAB PO SCH (10:00)
[2023-02-15] MEDS ORDERED: GUAI120L62 PO (11:36)
[2023-02-15] MEDS ORDERED: BISA-151 PO (11:36)
[2023-02-15] MEDS ORDERED: ESOM40CA54 PO (11:36)
[2023-02-15] MEDS ORDERED: PANT40TA54 PO (11:36)
[2023-02-15] MEDS ORDERED: L.AC1CAP6 PO (11:36)
[2023-02-15] MEDS ORDERED: HYDR-4068 PO (11:36)
[2023-02-15] MEDS ORDERED: NAPR-1023 PO (11:36)
[2023-02-15] MEDS ORDERED: PROM25TA7 PO (11:36)
[2023-02-15] MEDS ORDERED: BACL10TA PO (11:36)
[2023-02-15] MEDS ORDERED: TIRZ5PEN SQ (11:40)
[2023-02-15] MEDS ORDERED: ONDANSETRON 4MG INJ ONE (19:44)
[2023-02-15 19:45] VITALS: BP 139/60; PULSE 80; RESP 18; O2SAT 96
[2023-02-15] MEDS ORDERED: ATORVASTATIN 40 MG TABLET PO SCH (21:00)
== END 2023-02-15 19:49 | disposition short-term general hospital (02) ==
LOC: EDH 15:38 → EDHIP 21:12
PROVIDERS: ADMIT Internal Medicine; ATTEND Internal Medicine
DX: I63.9 Cerebral infarction, unspecified (principal); Z20.822 Contact with and (suspected) exposure to COVID-19; I48.20 Chronic atrial fibrillation, unspecified; E11.65 Type 2 diabetes mellitus with hyperglycemia; I10 Essential (primary) hypertension; E66.01 Morbid (severe) obesity due to excess calories; G47.33 Obstructive sleep apnea (adult) (pediatric); G89.29 Other chronic pain; M54.9 Dorsalgia, unspecified; E78.5 Hyperlipidemia, unspecified; F17.210 Nicotine dependence, cigarettes, uncomplicated; Z79.01 Long term (current) use of anticoagulants; Z68.37 Body mass index [BMI] 37.0-37.9, adult; Z86.718 Personal history of other venous thrombosis and embolism; Z86.711 Personal history of pulmonary embolism; Z79.899 Other long term (current) drug therapy
CPT/HCPCS: 81001; 96360; 96361 ×2; 99285; 82550 ×3; 83874 ×3; 84484 ×4; 80053; 80305; 85025; 87880; 87804 ×2; 83605; 36415 ×2; 87635; 71045; 70450; 93005; 84443; 83735; 84100; 80048; 83880; 85027; 82948 ×2; 70551; 92522; 92610; G0378 ×23; C9803; J1815 ×2; J1650; J2405

== ENCOUNTER → 2023-04-22 | Outpatient (CLI) | payer OTHER, MEDICARE ==
[~2023-04-22] MED LIST changes: +BACL10TA PO; +BISA-151 PO; -BUPR150T3 PO; -DULO30CA2 PO; +ESOM40CA54 PO; -GABA300C PO; +GUAI120L62 PO; +HYDR-4068 PO; +L.AC1CAP6 PO; -METO-391 PO; +NAPR-1023 PO; -NICO-704 TD; -OMEP40CA21 PO; +PANT40TA54 PO; +PROM25TA7 PO; -SEMA1PEN3 SQ; +TIRZ5PEN SQ; -VITAD50000 PO; -[UNRECOGNIZED DRUG - OTHER] PO
[2023-04-22 15:30] LABS: CREATININE 0.6 mg/dL (0.5-1.5); POTASSIUM 4.4 mmol/L (3.5-5.1)
== END | disposition home or self-care (01) ==
LOC: LAB 11:46
PROVIDERS: ATTEND Internal Medicine Cardiovascular Disease
DX: I25.10 Atherosclerotic heart disease of native coronary artery without angina pectoris (principal)
CPT/HCPCS: 36415; 80048

== ENCOUNTER → 2023-04-25 | Outpatient (CLI) | payer OTHER, MEDICARE ==
[~2023-04-25] MED LIST changes: +IOHEXOL 350 MG/ML 100ML INFUS..BTL IV ONE; +METOPROLOL TARTRATE 1 MG/ML 5ML VIAL IV ONE
== END | disposition home or self-care (01) ==
LOC: RAH 09:42
PROVIDERS: ATTEND Internal Medicine Cardiovascular Disease
DX: I25.10 Atherosclerotic heart disease of native coronary artery without angina pectoris (principal); I48.91 Unspecified atrial fibrillation; M47.815 Spondylosis without myelopathy or radiculopathy, thoracolumbar region
CPT/HCPCS: 75574; J3490 ×2; Q9967

== ENCOUNTER → 2023-06-24 | Outpatient (CLI) | payer OTHER, MEDICARE ==
[~2023-06-24] MED LIST changes: -IOHEXOL 350 MG/ML 100ML INFUS..BTL IV ONE; -METOPROLOL TARTRATE 1 MG/ML 5ML VIAL IV ONE; +REGADENOSON 0.4 MG/5 ML PF SYG IVP ONE
== END | disposition home or self-care (01) ==
LOC: SHCH 08:30
PROVIDERS: ATTEND Internal Medicine Cardiovascular Disease
DX: R07.9 Chest pain, unspecified (principal); I10 Essential (primary) hypertension
CPT/HCPCS: 78452; 96374; 93017; J2785; A9500 ×2

== ENCOUNTER 2023-08-15 07:09 | Day surgery (SDC) | payer OTHER, MEDICARE ==
[2023-08-12 08:59] LABS: BASOPHILS # (AUTO) 0.02 K/uL (0.00-0.20); BASOPHILS % (AUTO) 0.3 % (0.0-5.0); EOSINOPHILS # (AUTO) 0.12 K/uL (0.00-0.70); EOSINOPHILS % (AUTO) 1.7 % (0.0-8.0); HEMATOCRIT 44.6 % (36-48); IMMATURE GRANULOCYTE ABSOLUTE 0.03 K/uL (0-1); LYMPHOCYTES # (AUTO) 2.5 K/uL (1.0-4.8); LYMPHOCYTES % (AUTO) 34.1 % (21.0-51.0); MEAN CORPUSCULAR HEMOGLOBIN 29.1 pg (27.0-33.0); MEAN CORPUSCULAR HGB CONC 32.3 g/dL (32.0-36.0); MEAN CORPUSCULAR VOLUME 90.3 fL (79-99); MONOCYTES # (AUTO) 0.6 K/uL (0.1-1.0); MONOCYTES % (AUTO) 8.7 % (3.0-13.0); NEUTROPHILS % (AUTO) 54.8 % (40.0-77.0); PLATELET COUNT (AUTO) 221 K/uL (130-400); RED BLOOD CELL COUNT(AUTO) 4.94 MIL/uL (4.00-5.50); RED CELL DISTRIBUTION WIDTH 14.2 % (11.0-15.5); WHITE BLOOD COUNT (AUTO) 7.2 K/uL (4.8-10.8)
[2023-08-12 09:00] VITALS: BP 117/62; PULSE 70; RESP 16
[2023-08-12 09:06] LABS: CREATININE 0.7 mg/dL (0.5-1.5); POTASSIUM 4.6 mmol/L (3.5-5.1)
[2023-08-12 09:09] LABS: INR <= 0.93 (0.85-1.15); PROTHROMBIN TIME 10.5 SEC (9.6-11.6)
[2023-08-12 09:10] LABS: PARTIAL THROMBOPLASTIN TIME 27.5 SEC (26.3-35.5)
[2023-08-12 09:37] LABS: APPEARANCE,URINE CLEAR (CLEAR); BILIRUBIN,URINE NEGATIVE (NEGATIVE); COLOR,URINE YELLOW (YELLOW); GLUCOSE, URINE (UA) >=1000 mg/dL (NEGATIVE); KETONES,URINE NEGATIVE (NEGATIVE); LEUKOCYTE ESTERASE ,URINE NEGATIVE Leu/uL (NEGATIVE); NITRATE,URINE NEGATIVE (NEGATIVE); OCCULT BLOOD,URINE NEGATIVE (NEGATIVE); PH,URINE 5.5 (5.0-8.0); PROTEIN,URINE NEGATIVE (NEGATIVE); UROBILINOGEN,URINE 0.2 mg/dL (0.2-1.0)
[2023-08-12 09:39] LABS: ADD UA MICROSCOPIC YES
[2023-08-12 09:47] LABS: B-TYPE NATRIURETIC PEPTIDE 9 pg/mL (0-100)
[2023-08-12 09:55] LABS: BACTERIA,URINE Rare /HPF (None Seen); RBC,URINE 0-1 /HPF (0-1); SQUAMOUS EPITHELIAL CELL,UR 50-100 /HPF (0-2); YEAST,URINE BUDDING Moderate /HPF (None Seen)
[2023-08-15] VITALS (12 sets, daily range): BP systolic 123–147; BP diastolic 59–78; PULSE 76–94; RESP 15–19
[~2023-08-15] VITALS: Ht 154.9 cm; Wt 112.7 kg
[~2023-08-15 07:09] MED LIST changes: -ALBU90AE IH; -ATOR10TA69 PO; +ATOR20TA65 PO; -BACL10TA PO; +CLOT15CR5 TP; +EMPA25TA PO; -ESOM40CA54 PO; +GLIP10TA19 PO; -GUAI120L62 PO; -L.AC1CAP6 PO; +LINA145C PO; -LISI10TA24 PO; +LISI20TA24 PO; -LORA10TA7 PO; +MAGN400T40 PO; +METO-391 PO; +MULT-1367 PO; -NAPR-1023 PO; -PROM25TA7 PO; -REGADENOSON 0.4 MG/5 ML PF SYG IVP ONE; -TIRZ5PEN SQ
[2023-08-15] MEDS ORDERED: 0.9%NACL 1000ML 1,000 ML IV ONE (07:53)
[2023-08-15] MEDS ORDERED: NITROGLYCERIN 50MG VIAL ONE (09:16)
[2023-08-15] MEDS ORDERED: LIDOCAINE HCL 400MG/20ML VIAL ONE (09:16)
[2023-08-15] MEDS ORDERED: HEPARIN 10,000 UNIT/10ML (1,000 UNIT/ML) VIAL ONE (09:16)
[2023-08-15] MEDS ORDERED: SODIUM BICARB 50MEQ 50ML VIAL 50 ML ONE (09:16)
[2023-08-15] MEDS ORDERED: IOHEXOL-350 50ML VIAL IV ONE (09:18)
[2023-08-15] MEDS ORDERED: IOHEXOL 350 MG/ML 100ML INFUS..BTL IV ONE (09:18)
[2023-08-15] MEDS ORDERED: MEPERIDINE-PF 25 MG/ML SYG ONE ×2 (09:43→10:36)
[2023-08-15] MEDS ORDERED: MIDAZOLAM HCL 1 MG/ML 2ML VIAL ONE ×2 (09:43→10:36)
[2023-08-15] MEDS ORDERED: ASPIRIN 325MG EC TAB PO ONE (10:45)
[2023-08-15] MEDS ORDERED: CLOPIDOGREL 300MG TAB ONE (10:45)
[2023-08-15] MEDS ORDERED: DEXTROSE 50%-WATER 50 ML DISP.SYRIN IV PRN (11:30)
[2023-08-15] MEDS ORDERED: 0.9%NACL 1000ML 1,000 ML IV SCH (11:30)
[2023-08-15] MEDS ORDERED: GLUCAGON 1MG KIT 1 MG ML IM PRN (11:30)
[2023-08-15] MEDS ORDERED: INSULIN HUMULIN R 100 UNIT/ML 3ML SQ SCH (11:30)
== END 2023-08-15 16:50 | disposition home or self-care (01) ==
LOC: DAH 07:09
PROVIDERS: ATTEND Internal Medicine Cardiovascular Disease
DX: I25.119 Atherosclerotic heart disease of native coronary artery with unspecified angina pectoris (principal); I48.0 Paroxysmal atrial fibrillation; I45.10 Unspecified right bundle-branch block; I10 Essential (primary) hypertension; E11.9 Type 2 diabetes mellitus without complications; F17.200 Nicotine dependence, unspecified, uncomplicated; E78.5 Hyperlipidemia, unspecified; K21.9 Gastro-esophageal reflux disease without esophagitis; G47.33 Obstructive sleep apnea (adult) (pediatric); Z79.01 Long term (current) use of anticoagulants; Z79.899 Other long term (current) drug therapy; Z98.890 Other specified postprocedural states; Z95.5 Presence of coronary angioplasty implant and graft; Z86.718 Personal history of other venous thrombosis and embolism; Z90.49 Acquired absence of other specified parts of digestive tract; Z98.51 Tubal ligation status; Z82.49 Family history of ischemic heart disease and other diseases of the circulatory system
CPT/HCPCS: 80048; 83880; 85025; 85610; 85730; 81001; 36415 ×2; 71045; 93005; 85347; 82948; 93458; C9600; C1769 ×2; C1894 ×3; C1874; C1760; C1887 ×2; J3490 ×3; J7030; J1644 ×2; J2250 ×2; J2175 ×2; Q9967; A4215; A4335; A4222; A4221; A4663; A4216; A4606; Q9965; A4223 ×3; 96360; 96361; 99156; 99157

== ENCOUNTER → 2024-01-30 | Outpatient (CLI) | payer OTHER, MEDICARE | END | disposition home or self-care (01) | LOC: SHCH 10:43 | PROVIDERS: ATTEND Internal Medicine Cardiovascular Disease | DX: I82.411 Acute embolism and thrombosis of right femoral vein (principal); I10 Essential (primary) hypertension; M48.00 Spinal stenosis, site unspecified | CPT/HCPCS: 93970 ==

== ENCOUNTER → 2024-05-07 | Outpatient (CLI) | payer OTHER, MEDICARE ==
[~2024-05-07] MED LIST changes: +CYCL7.5T27 PO; +KETO10TA2 PO; +LIDOP TP
== END | disposition home or self-care (01) ==
LOC: SHCH 12:19
PROVIDERS: ATTEND Internal Medicine Cardiovascular Disease
DX: I73.9 Peripheral vascular disease, unspecified (principal); I82.411 Acute embolism and thrombosis of right femoral vein; I48.91 Unspecified atrial fibrillation
CPT/HCPCS: 93970

== ENCOUNTER 2024-05-16 19:28 | Emergency (ER) | payer OTHER, MEDICARE ==
[~2024-05-16] VITALS: Ht 154.9 cm; Wt 90.7 kg
[~2024-05-16 19:28] MED LIST changes: -CYCL7.5T27 PO; -KETO10TA2 PO; -LIDOP TP
--- NOTE | 2024-05-16 19:45 | ERN ---
ED Note History of Present Illness Stated Complaint: BACK PAIN Chief Complaint: Flank Pain Time Seen by MD: 19:31 Dictation: 63-year-old female with with a past medical history of diabetes, hypertension, morbid obesity presented to the ER complaining of right flank pain. Patient reports severe pain in the CVA side. She reports pain times 48 hours. Denies fever, chills, and no urinary symptoms. Allergies: Coded Allergies: No Known Drug Allergies (Verified Allergy, Unknown, 03/16/14) Home Meds Reported Medications Clotrimazole/Betamethasone Dip (Clotrimazole-Betamethasone Crm) 1 %-0.05 % Cream..g., 1 APPL TP DAILY 08/12/23 Metoprolol Succinate (Metoprolol Succinate) 50 Mg Tab.er.24h, 50 MG PO HS, TAB 08/12/23 Magnesium Oxide (Magnesium) 400 Mg Magnesium Tablet, 400 MG PO DAILY, TAB 08/12/23 Empagliflozin (Jardiance) 25 Mg Tablet, 25 MG PO DAILY, TAB 08/12/23 Glipizide (Glipizide ER) 10 Mg Tab.er.24, 10 MG PO DAILY 08/12/23 Linaclotide (Linzess) 145 Mcg Capsule, 145 MCG PO DAILY PRN for CONSTIPATION, CA P 08/12/23 Multivitamin (Multivitamin) 1 Each Tablet, 1 EACH PO DAILY, TAB 08/12/23 Lisinopril (Lisinopril) 20 Mg Tablet, 20 MG PO HS, TAB 08/12/23 Atorvastatin Calcium (Atorvastatin Calcium) 20 Mg Tablet, 20 MG PO HS, TAB 08/12/23 Hydrocodone/Acetaminophen (Hydrocodon-Acetaminophn 10-325) 1 Each Tablet, 1 EACH PO Q4PRN PRN for PAIN LEVEL 4 TO 6, TAB 02/15/23 Bisacodyl (Bisacodyl) 5 Mg Tablet.dr, 5 MG PO DAILY PRN for CONSTIPATION, TAB 02/15/23 Pantoprazole Sodium (Pantoprazole Sodium) 40 Mg Tablet.dr, 40 MG PO DAILY, TAB 02/15/23 Insulin Degludec (Tresiba) 100 Unit/Ml Vial, 95 UNIT SQ DAILY, VIAL 11/12/19 Apixaban (Eliquis) 5 Mg Tablet, 5 MG PO BID, TAB 11/12/19 Past Medical History Past Medical History: A-Fib, Diabetes-Type II, Heart Disease, Hypertension Additional Past Medical Hx: LUPUS Surgical History: Unknown Review of System Dictation NEGATIVE EXCEPT PER HPI Constitutional: Negative for fever,chills, and weight loss Eyes: Negative for injury, pain,redness, and discharge ENT: Negative for injury,pain or swelling Cardiovascular: denies chest pain, palpitations, and edema Respiratory: Negative for shortness of breath, cough, and wheezing, Abdomen/GI: Negative for abdominal pain, nausea, vomiting, diarrhea, and constipation Back: Right CVA pain : Negative for injury, bleeding and discharge MS/Extremity: Negative for injury and deformity Skin: Negative for rash, and discoloration Neuro: Negative for headache, weakness, numbness, tingling, and seizure Psych: Negative for suicide ideation, homicidal ideation, and hallucinations Initial Vital Sign VS Vital Signs Date Time Temp Pulse Resp B/P (MAP) Pulse Ox O2 Delivery O2 Flow Rate FiO2 05/16/24 19:36 97.0 90 16 161/67 99 Room Air 05/16/24 21:44 0 21 Physical Exam Dictation General: awake, alert, NAD Head/Face: Normocephalic, atraumatic Eyes: PERRL, EOMI, vision at baseline ENT: oral cavity clear, TMs clear, no signs of infection Neck: Trachea midline, supple, no nuchal rigidity Cardiovascular: RRR, normal S1/S2, No MRGs, no JVD Respiratory: CTAB, no respiratory distress, No rales or wheezes Abdomen: Right CVA tenderness Skin: Warm, dry, normal turgor, no rash MS/Extremity: Pulses equal, no cyanosis, neurovascular intact, FROM Neuro: COAx4, GCS 15, strength 5/5, CN 2-12 intact, normal cerebellar exam, normal gait, Psych: Normal behavior, mood, and affect normal Results (Laboratory/Radiology) Laboratory/Radiology Laboratory Tests Test 05/16/24 20:11 05/16/24 21:42 White Blood Count 9.1 K/uL (4.8-10.8) Red Blood Count 4.60 MIL/uL (4.00-5.50) Hemoglobin 13.8 g/dL (12.0-16.0) Hematocrit 42.5 % (36-48) Mean Corpuscular Volume 92.4 fL (79-99) Mean Corpuscular Hemoglobin 30.0 pg (27.0-33.0) Mean Corpuscular Hemoglobin Concent 32.5 g/dL (32.0-36.0) Red Cell Distribution Width 13.2 % (11.0-15.5) Platelet Count 199 K/uL (130-400) Mean Platelet Volume 10.0 fL (7.5-10.5) Immature Granulocyte % (Auto) 0.2 % (0-1) Neutrophils (%) (Auto) 60.7 % (40.0-77.0) Lymphocytes (%) (Auto) 29.7 % (21.0-51.0) Monocytes (%) (Auto) 7.9 % (3.0-13.0) Eosinophils (%) (Auto) 1.2 % (0.0-8.0) Basophils (%) (Auto) 0.3 % (0.0-5.0) Neutrophils # (Auto) 5.5 K/uL (1.8-7.7) Lymphocytes # (Auto) 2.7 K/uL (1.0-4.8) Monocytes # (Auto) 0.7 K/uL (0.1-1.0) Eosinophils # (Auto) 0.11 K/uL (0.00-0.70) Basophils # (Auto) 0.03 K/uL (0.00-0.20) Absolute Immature Granulocyte (auto 0.02 K/uL (0-1) Nucleated Red Blood Cells 0.0 % (0.0-0.19) Sodium Level 143 mmol/L (136-145) Potassium Level 3.5 mmol/L (3.5-5.1) Chloride Level 107 mmol/L (101-111) Carbon Dioxide Level 32 mmol/L (21-32) Blood Urea Nitrogen 20 mg/dL (7-18) H Creatinine 0.6 mg/dL (0.5-1.0) Glomerular Filtration Rate Calc 101 mL/min (>90) Random Glucose 211 mg/dL (70-105) H Total Calcium 8.6 mg/dL (8.5-10.1) Urine Color YELLOW (YELLOW) Urine Appearance CLOUDY (CLEAR) H Urine pH 5.5 (5.0-8.0) Urine Specific Howe 1.031 (1.001-1.031) Urine Protein 20 mg/dL (NEGATIVE) H Urine Glucose (UA) 150 mg/dL (NEGATIVE) H Urine Ketones 5 mg/dL (NEGATIVE) H Urine Occult Blood NEGATIVE (NEGATIVE) Urine Nitrate NEGATIVE (NEGATIVE) Urine Bilirubin NEGATIVE mg/dL (NEGATIVE) Urine Urobilinogen 3 mg/dL (0.2-1.0) H Urine Leukocyte Esterase 25 Neda/uL (NEGATIVE) H Urine RBC TNTC /HPF (0-1) H Urine WBC 2-5 /HPF (0-1) H Urine Squamous Epithelial Cells MOD /HPF (0-2) Urine Bacteria None /HPF (None Seen) Urine Yeast MANY /HPF (None Seen) ED Course ED Course Orders Procedure Category Date Status Time Urinalysis Profile LAB 05/16/24 Complete 19:38 Basic Metabolic Panel LAB 05/16/24 Complete 19:38 Cbc With Differential LAB 05/16/24 Complete 19:38 Ketorolac PHA 05/16/24 Complete Tromethamine 30mg/Ml 20:00 Cyclobenzaprine Hcl PHA 05/16/24 Complete (Cyclobenzaprine Hcl 20:00 Lidocaine (Lidocaine PHA 05/16/24 Complete Patch 4%) 21:30 Ct Abdomen/Pelvis W/O CT 05/16/24 Resulted Contrast 22:15 Current Medications Medications (Trade) Dose Ordered Sig/Asya Route PRN Reason Start Time Stop Time Status Last Admin Dose Admin Cyclobenzaprine HCl (Cyclobenzaprine HCl) 10 mg ONCE ONCE PO 05/16/24 20:00 05/16/24 20:01 DC 05/16/24 19:49 Ketorolac Tromethamine (toRADol) 30 mg ONCE ONCE IM 05/16/24 20:00 05/16/24 20:01 DC 05/16/24 19:49 Lidocaine (Lidocaine Patch 4%) 1 each ONCE ONCE TP 05/16/24 21:30 05/16/24 21:31 DC 05/16/24 21:27 Vital Signs Date Time Temp Pulse Resp B/P (MAP) Pulse Ox O2 Delivery O2 Flow Rate FiO2 05/16/24 21:44 98.1 92 18 158/65 99 Room Air* 0 21 05/16/24 19:36 97.0 90 16 161/67 99 Room Air Medical Decision Making MDM 64-year-old female who presented with a right flank/CVA tenderness times 48 hours. Pain worsened with movement. Rationale: UTI/nephrolithiasis/muscle spasm. Order CBC, BNP, UA. Ordered ketorolac IV, cyclobenzaprine 10 mg oral FINDINGS: No pleural effusion is seen bilaterally. There is no evidence of parenchymal disease or pulmonary nodule of the visualized lower lungs. Degenerative changes of the thoracolumbar spine are present. The heart is not enlarged. Coronary arterial calcifications are seen. There is dextroscoliosis. There are degenerative changes with spondylosis. Orthopedic fixation plates and screws are seen traversing the L5 and S1 level. There is complex fluid collection noted in the right lower spine area within the subcutaneous tissue measuring 3.7 x 2.3 x 6 cm may be related to seroma versus postoperative fluid. This was also seen on previous study. Liver is enlarged measuring 18 cm. Postcholecystectomy changes are seen. The liver, spleen, adrenal glands and pancreas are unremarkable. There is no evidence of hydronephrosis bilaterally. No evidence of renal stone is seen. Fecal material is seen in the colon. There are normal size retroperitoneal and mesenteric lymph nodes. No ascites is seen. Atherosclerotic changes are present. Pelvic sidewalls are symmetric bilaterally. Bladder is poorly distended. IMPRESSION: 1. Postop changes noted of the lumbar spine with complex fluid collection in the cutaneous tissue of right lower flank region unchanged. No ascites is seen. Atherosclerosis. Likely patient has a pain is due to muscle strain, we will provide the pain medication muscle relaxant. Results of CT was discussed with the patient's bedside. DX & DISP Disposition: Discharge Departure Impression: Primary Impression: Muscle strain Additional Impression: Muscle spasm of back Condition: Stable Scripts Ketorolac Tromethamine (Ketorolac Tromethamine) 10 Mg Tablet 1 TAB PO Q6HPRN PRN for pain for 5 Days, #15 TAB 0 Refills Prov: MADISON SUNG MD 05/16/24 Cyclobenzaprine HCl (Cyclobenzaprine HCl) 7.5 Mg Tablet 1 TAB PO BIDPC PRN for back pain for 30 Days, #15 TAB 0 Refills Prov: MADISON SUNG MD 05/16/24 Lidocaine (Lidoderm Patch 5%) 5 % Patch 1 PATCH TP DAILY for 30 Days, #7 PATCH 0 Refills may wear up to 12 hours Prov: MADISON SUNG MD 05/16/24 Additional Instructions: RETURN TO ER FOR ANY ACUTE OR WORSENING SYMPTOMS. FOLLOW-UP IN 1-2 DAYS WITH PRIMARY PROVIDER FOR RECHECK OF TODAY'S SYMPTOMS. Referrals: KEYUR BRADFORD MD (PCP) Time of Disposition: 23:44 MADISON SUNG MD May 16, 2024 19:45
[2024-05-16] MEDS: ketOROlac 30MG VIAL (30MG/ML) IM ONE (19:49)
[2024-05-16] MEDS: CYCLOBENZAPRINE HCL 10 MG TABLET PO ONE (19:49)
[2024-05-16 20:24] LABS: BASOPHILS # (AUTO) 0.03 K/uL (0.00-0.20); BASOPHILS % (AUTO) 0.3 % (0.0-5.0); EOSINOPHILS # (AUTO) 0.11 K/uL (0.00-0.70); EOSINOPHILS % (AUTO) 1.2 % (0.0-8.0); HEMATOCRIT 42.5 % (36-48); IMMATURE GRANULOCYTE ABSOLUTE 0.02 K/uL (0-1); LYMPHOCYTES # (AUTO) 2.7 K/uL (1.0-4.8); LYMPHOCYTES % (AUTO) 29.7 % (21.0-51.0); MEAN CORPUSCULAR HGB CONC 32.5 g/dL (32.0-36.0); MEAN CORPUSCULAR VOLUME 92.4 fL (79-99); MONOCYTES # (AUTO) 0.7 K/uL (0.1-1.0); MONOCYTES % (AUTO) 7.9 % (3.0-13.0); NEUTROPHILS # (AUTO) 5.5 K/uL (1.8-7.7); NEUTROPHILS % (AUTO) 60.7 % (40.0-77.0); PLATELET COUNT (AUTO) 199 K/uL (130-400); RED CELL DISTRIBUTION WIDTH 13.2 % (11.0-15.5); WHITE BLOOD COUNT (AUTO) 9.1 K/uL (4.8-10.8)
[2024-05-16 20:37] LABS: CREATININE 0.6 mg/dL (0.5-1.0); POTASSIUM 3.5 mmol/L (3.5-5.1)
[2024-05-16] MEDS: LIDOCAINE 4% ADH..PATCH TP ONE (21:27)
[2024-05-16 21:51] LABS: APPEARANCE,URINE CLOUDY (CLEAR); BILIRUBIN,URINE NEGATIVE (NEGATIVE); COLOR,URINE YELLOW (YELLOW); GLUCOSE, URINE (UA) 150 mg/dL (NEGATIVE); KETONES,URINE 5 mg/dL (NEGATIVE); LEUKOCYTE ESTERASE ,URINE 25 Leu/uL (NEGATIVE); NITRATE,URINE NEGATIVE (NEGATIVE); OCCULT BLOOD,URINE NEGATIVE (NEGATIVE); PH,URINE 5.5 (5.0-8.0); PROTEIN,URINE 20 mg/dL (NEGATIVE); UROBILINOGEN,URINE 3 mg/dL (0.2-1.0)
[2024-05-16 21:52] LABS: ADD UA MICROSCOPIC YES
[2024-05-16 21:54] LABS: MUCUS,URINE RARE LPF (None Seen); RBC,URINE TNTC /HPF (0-1); SQUAMOUS EPITHELIAL CELL,UR MOD /HPF (0-2); YEAST,URINE BUDDING MANY /HPF (None Seen)
--- NOTE | 2024-05-16 23:21 | HMCIMG ---
CT ABDOMEN/PELVIS W/O CONTRAST HISTORY: Right-sided pain COMPARISON: 02/23/2022 TECHNIQUE: Multiple sequential axial images of the abdomen and pelvis were obtained from the dome of the diaphragm through symphysis pubis. Patient was not given contrast through intravenous route. Oral contrast was not given. FINDINGS: No pleural effusion is seen bilaterally. There is no evidence of parenchymal disease or pulmonary nodule of the visualized lower lungs. Degenerative changes of the thoracolumbar spine are present. The heart is not enlarged. Coronary arterial calcifications are seen. There is dextroscoliosis. There are degenerative changes with spondylosis. Orthopedic fixation plates and screws are seen traversing the L5 and S1 level. There is complex fluid collection noted in the right lower spine area within the subcutaneous tissue measuring 3.7 x 2.3 x 6 cm may be related to seroma versus postoperative fluid. This was also seen on previous study. Liver is enlarged measuring 18 cm. Postcholecystectomy changes are seen. The liver, spleen, adrenal glands and pancreas are unremarkable. There is no evidence of hydronephrosis bilaterally. No evidence of renal stone is seen. Fecal material is seen in the colon. There are normal size retroperitoneal and mesenteric lymph nodes. No ascites is seen. Atherosclerotic changes are present. Pelvic sidewalls are symmetric bilaterally. Bladder is poorly distended. IMPRESSION: 1. Postop changes noted of the lumbar spine with complex fluid collection in the cutaneous tissue of right lower flank region unchanged. No ascites is seen. Atherosclerosis. CT was performed with one or more following dose reduction techniques: automated exposure control, adjustment of the mA and kv according to patient's size, or use of a iterative reconstruction technique.
[2024-05-16] MEDS ORDERED: KETO10TA2 PO (23:47)
[2024-05-16] MEDS ORDERED: CYCL7.5T27 PO (23:47)
[2024-05-16] MEDS ORDERED: LIDOP TP (23:47)
[2024-05-16 23:55] VITALS: BP 148/60; PULSE 90; RESP 18; TEMP 98.2; O2SAT 99
== END 2024-05-17 00:02 | disposition home or self-care (01) ==
LOC: EDH 19:28
DX: S39.011A Strain of muscle, fascia and tendon of abdomen, initial encounter (principal); R25.2 Cramp and spasm; E11.9 Type 2 diabetes mellitus without complications; I11.9 Hypertensive heart disease without heart failure; Z79.01 Long term (current) use of anticoagulants; Z79.4 Long term (current) use of insulin; Z79.84 Long term (current) use of oral hypoglycemic drugs; Z79.899 Other long term (current) drug therapy; X58.XXXA Exposure to other specified factors, initial encounter; Y93.89 Activity, other specified; Y92.89 Other specified places as the place of occurrence of the external cause; Y99.8 Other external cause status
CPT/HCPCS: 99285; 74176; 80048; 85025; 81001; 36415; 96372; J1885

== ENCOUNTER → 2024-06-12 | Outpatient (CLI) | payer OTHER, MEDICARE ==
[~2024-06-12] MED LIST changes: +CYCL7.5T27 PO; +KETO10TA2 PO; +LIDOP TP
[2024-06-12 12:44] LABS: CREATININE 0.6 mg/dL (0.5-1.0); MAGNESIUM 1.7 mg/dL (1.80-2.40); POTASSIUM 4.5 mmol/L (3.5-5.1)
== END | disposition home or self-care (01) ==
LOC: LAB 08:35
PROVIDERS: ATTEND Nurse Practitioner Acute Care
DX: I10 Essential (primary) hypertension (principal); E78.5 Hyperlipidemia, unspecified
CPT/HCPCS: 36415; 80048; 83735; 83880

== ENCOUNTER → 2024-06-23 | Outpatient (CLI) | payer OTHER, MEDICARE ==
--- NOTE | 2024-06-28 07:38 | HMCSR ---
APPROVED REPORT EXAM: Two-dimensional and M-mode echocardiogram with Doppler and color Doppler. INDICATION ICD: R06.02 Shortness of breath 2D Dimensions RVDd3.0 cmLVEF(%)63.6 (>50%)LVED Vol(simp.)48.2 mL IVSd1.2 (0.7-1.1cm)FS(%)34 %LVES Vol(simp.)20.3 mL LVDd4.1 (3.8-5.6cm)LA (2D)3.5 (1.6-4.0cm)LVEF(%, simp.)58 % PWd1.3 (0.7-1.1cm)Ao Root(2D)2.9 (2.0-3.7cm)LA ESV INDEX (4CH)16.90 mL/m2 IVSs1.1 cmLVOT diam1.8 (1.8-2.4cm)LA ESV INDEX (2CH)17.40 mL/m2 LVDs2.7 (2.5-4.0cm)LA ESV INDEX (BP)16.30 mL/m2 PWs1.4 cm M-Mode Dimensions EPSS0.7 cm LA (MM)3.9 (1.6-4.0cm) Ao Root(MM)3.3 (2.0-3.7cm) Aortic Valve AoV VTI0.3 mAo Mean GR4.0 mmHgLVOT VTI0.22 m CASH (VMAX)1.9 cm2AVA (VTI) 1.9 cm2 Mitral Valve MV E Vmax53.4 cm/sDECEL Time92 ms MV A Qplg754.2 cm/sP 1/2 T34 ms E/A ratio0.5MVA (PHT)6.5 cm2 TDI E/E' Medial9.4E/E' Lateral8.5 Medial E' Peak V5.70 cm/sLateral E' Peak V6.30 cm/s Left Ventricle Left ventricular cavity size is normal. There is normal LV segmental wall motion. Mild concentric lef t ventricular hypertrophy. LVEF is 60-65%. No left ventricle thrombus noted on this study. E/A flow i s fused. Right Ventricle The right ventricle is normal size. The right ventricular systolic function is normal. Atria The left atrium size is normal. The right atrium size is normal. Aortic Valve The aortic valve is normal in structure and function. No aortic regurgitation is present. There is no aortic valvular stenosis. Mitral Valve The mitral valve is mildly thickened. Mitral annular calcification is moderate. There is no mitral va lve regurgitation noted. There is no mitral valve stenosis. Tricuspid Valve The tricuspid valve leaflets appear normal. There is no tricuspid valve regurgitation noted. Pulmonic Valve Pulmonic valve is not well visualized. There is no pulmonic valvular regurgitation. Great Vessels The aortic root is normal in size. IVC is not visualized. Pericardium No pericardial effusion. Other Information Quality : Technically difficult due to body habitus Conclusion Left ventricular cavity size is normal. Mild concentric left ventricular hypertrophy. LVEF is 60-65%. E/A flow is fused. The right ventricle is normal size. The left atrium size is normal. The aortic valve is normal in structure and function. The mitral valve is mildly thickened. Mitral annular calcification is moderate. There is no mitral valve regurgitation noted. There is no mitral valve stenosis. The aortic root is normal in size. IVC is not visualized. No pericardial effusion.
== END | disposition home or self-care (01) ==
LOC: SHCH 09:44
PROVIDERS: ATTEND Internal Medicine Cardiovascular Disease
DX: I34.81 Nonrheumatic mitral (valve) annulus calcification (principal); R06.02 Shortness of breath
CPT/HCPCS: 93306

== ENCOUNTER → 2024-06-25 | Outpatient (CLI) | payer OTHER, MEDICARE ==
--- NOTE | 2024-06-25 16:17 | HMCIMG ---
MR KNEE RIGHT WO HISTORY: No additional history given. COMPARISON: None TECHNIQUE: MRI of the right knee was performed utilizing multiple pulse sequences in axial, coronal and sagittal planes. Patient was not given contrast through intravenous route. FINDINGS: Abnormal increased signal intensity is seen involving the lateral femoral condyle consistent with bone bruise (microtrabecular fracture). There is osteochondritis desiccation noted in the lateral femoral condyle with adjacent cartilage loss. There appears to be anterior cruciate ligament tear and posterior cruciate ligament sprain. There is medial collateral ligament sprain. Lateral collateral ligament is intact. There are motion artifacts degrading the image quality. Quadriceps tendon and patellar tendon are within normal limits. There is intrasubstance tear involving the medial and lateral menisci. Possible medial meniscal tear is seen involving posterior horn with inferior extension. No evidence of Jerry's cyst is seen. Small amount of joint effusion is seen. IMPRESSION: 1. Possible anterior cruciate ligament tear. Posterior cruciate ligament sprain. There is medial collateral ligament sprain. Motion artifacts degrading the image quality. Intrasubstance tear of medial and lateral menisci. Possible medial meniscal tear. Small joint effusion.
== END | disposition home or self-care (01) ==
LOC: RAH 13:40
PROVIDERS: ATTEND Family Medicine
DX: S83.411A Sprain of medial collateral ligament of right knee, initial encounter (principal); S83.521A Sprain of posterior cruciate ligament of right knee, initial encounter; S83.281A Other tear of lateral meniscus, current injury, right knee, initial encounter; M25.461 Effusion, right knee; M93.88 Other specified osteochondropathies other; M25.561 Pain in right knee; X58.XXXA Exposure to other specified factors, initial encounter; Y93.89 Activity, other specified; Y92.89 Other specified places as the place of occurrence of the external cause; Y99.8 Other external cause status
CPT/HCPCS: 73721

== ENCOUNTER → 2024-10-02 | Outpatient (CLI) | payer OTHER, MEDICARE ==
[~2024-10-02] MED LIST changes: +GLIP-302 PO; -GLIP10TA19 PO
--- NOTE | 2024-10-03 08:27 | HMCSR ---
APPROVED REPORT Right Lower Extremity Venous Study for DVT., Venous Competence. Indications Venous Insuff Past History DVT : Right Vein Imaging CFV (R): Normal flow, augmentation and compression. No evidence of DVT. 9.2mm 344ms of Reflux. SFJ (R): Normal flow, augmentation and compression. No evidence of DVT. FEM (R): , Partially Compressible, Thrombus POP (R): Partially Compressible, Thrombus DFV (R): Normal flow, augmentation and compression. No evidence of DVT. PTV (R): Normal flow, augmentation and compression. No evidence of DVT. Peroneals (R): Normal flow, augmentation and compression. No evidence of DVT. Technologist Impression Chronic partially occlusive DVT noted in the RT. SFV Mid to Pop Vein. No Deep vein reflux noted. Superficial venous insufficiency seen in the RGSV at junction. Verbal preliminary given to Lisa TALBOT at [facility], as per nurse and Jessica Au it is okay for patient to go home and follow up at the clinic on October 11. Patient agreed. RGSV junction 5.6mm 539ms thigh 4.2mm 217ms knee 4.9mm 0.0ms calf 3.1mm 117ms RSSV prox 4.0mm 0.0ms mid 1.8mm 0.0ms Conclusion Chronic partially occlusive DVT noted in the RT. SFV Mid to Pop Vein. No Deep vein reflux noted. Superficial venous insufficiency seen in the RGSV at junction. Conclusion Chronic partially occlusive DVT noted in the RT. SFV Mid to Pop Vein. No Deep vein reflux noted. Superficial venous insufficiency seen in the RGSV at junction.
== END | disposition home or self-care (01) ==
LOC: SHCH 10:49
PROVIDERS: ATTEND Internal Medicine Cardiovascular Disease
DX: I82.401 Acute embolism and thrombosis of unspecified deep veins of right lower extremity (principal); I87.2 Venous insufficiency (chronic) (peripheral)
CPT/HCPCS: 93971